=== PATIENT | female | born 1985 | race African-American/Black ===

== ENCOUNTER → 2023-05-25 09:47 | Outpatient (BNVA) | payer OTHER, SELFPAY | PROVIDERS: PCP Internal Medicine; Visit Provider Physician Assistant ==

== ENCOUNTER 2023-06-08 08:22 | Outpatient (AMB) | payer OTHER, SELFPAY ==
--- OUTSIDE RECORDS SUMMARY | 2023-06-08 08:23 | XMS_ITS | Continuity of Care Document ---
Author Name Unknown Organization [facility] Address [address] [place] [address]- Care Team Providers Care Assistant Account Executive Name Role Phone Yoli Sunshine MD, V Primary Care Physician [phone] Encounter [facility] ACCT R [id number] Date(s): 10/13/22 - 10/20/22 [facility] [address] [place] [address]- Encounter Diagnosis Severe obesity(Discharge Diagnosis) - 10/13/22 Health care maintenance(Discharge Diagnosis) - 10/13/22 Headache(Discharge Diagnosis) - 10/13/22 Loud snoring(Discharge Diagnosis) - 10/13/22 Attending Physician: Yoli Sunshine MD, V Allergies, Adverse Reactions, Alerts No Known Allergies Problem List Condition Confirmation Course Effective Dates Status Health St atus Informant Headache Confirmed Active Health care maintenance Confirmed Active Severe obesity Confirmed Active Loud snoring Confirmed Active Diagnosis Diagnosis Type Effective Dates Health Status Clinical Service Informant Severe obesity Discharge Diagnosis 10/13/22 Health care maintenance Discharge Diagnosis 10/13/22 Headache Discharge Diagnosis 10/13/22 Loud snoring Discharge Diagnosis 10/13/22 Vital Signs Most recent to oldest [Reference Range]: 1 2 Height 163 cm (10/13/22 11:29 AM) 163 cm (10/13/22 8:22 AM) Weight 118.7 kg (10/13/22 11:29 AM) 118.7 kg (10/13/22 8:22 AM) Oxygen Saturation [94-100 %] 98 % (10/13/22 8:22 AM) Pulse Rate [55-90 bpm] 70 bpm (10/13/22 8:22 AM) Body Mass Index [18.5-24.99 kg/m2] 44.68 kg/m2 *>HHI* (10/13/22 8:22 AM) Blood Pressure [90-138/55-84 mm Hg] 126/ 84mm Hg (10/13/22 8:22 AM) Respiratory Rate [16-30 br/min] 16 br/mi n (10/13/22 8:22 AM) Mode of Delivery (Oxygen) Room air (10/13/22 8:22 AM) Blood pressure sites Arm, left (10/13/22 8:22 AM) Weight Obtained Via Standing scale (10/13/22 8:22 AM) Social History Social History Type Response Smoking Status Never (less than 100 in lifetime) entered on: 10/13/22 Sex Note * Gilda Edwards: VERIFY, PERFORM, SIGN Event Display: Patient Education/Instruction Authored Date: [id number] [facility] *No Edge Adult Ped Clinical Summary Name ROBERT BETTENCOURT Age 37 Years 1985 PCP Jong TRIPATHI, Yoli Valverde PCP Visit Date 10/13/2022 08:00:00 Additional Instructions: Scheduled Appointments?? Future Appointments ?No Future Appointments Scheduled Follow-Up Instructions ?? Diagnosis Medications: Please continue your medications until treatment is completed or stopped by your provider. Discuss any questions related to medications with your provider. Allergy Info:?? NKA Medications Given This Visit Future Orders ?Comprehensive Metabolic Panel? Order Date:10/13/22?- Complete on or after?10/13/22 ?TSH with T4 Reflex (Adults Only)? Order Date:10/13/22?- Complete on or after?10/13/22 ?Lipid Panel? Order Date:10/13/22?- Complete on or after?10/13/22 ?CBC w/ Differential? Order Date:10/13/22?- Complete on or after?10/13/22 ?Hemoglobin A1C (Monitoring)? Order Date:10/13/22?- Complete on or after?10/13/22 ?Hepatitis C Ab? Order Date:10/13/22?- Complete on or after?10/13/22 Vital Signs Height 163 cm Weight 118.7 kg BMI 44.68 kg/m2 Blood Pressure 126 mm Hg/84 mm Hg Temperature Pulse Rate 70 bpm Respiratory Rate 16 br/min 02 Sat Mode of Delivery 98 %/Room air You can now view a summary of your hospital visit from the comfort of your home through a free online portal called [employer]. [employer] is a website that allows you to securely view your medical information including discharge summary, medications and follow-up visits. ??You can alsosend a secure electronic message to your doctor???s office to request appointments, renew medications or just ask a question. You can enroll at [email or web address] or register during your next office visit. Disclaimer:?? The information provided is of a general nature and is intended to be used in conjunction with the recommendations and advice of your health care practitioner. ??Every effort has been made to ensure that the information provided is accurate and complete at the time it is provided to you however, as your needs change, or, as new ??information becomes available, different or additional instructions may be required. If you have questions, please consult with your primary care provider or pharmacist, as appropriate. ??This information is not intended to serve as substitution for assessment and evaluation by a qualified health care provider. If you do not have a primary care provider, you may find a [facility] provider by calling [facility] [employer] Link at [phone]. For information about the plan of care including goals and instructions for your diagnosis, please see the patient education orders section of this document. Patient Education Materials?? The content of this educational material or handout may have been modified, supplemented, or adapted from its original content and format to support your individualized medical care. Patient Care team information Care Team Personnel Name: Jong TRIPATHI, Yoli Valverde Position: [facility] Primary Care Physician Member Role: PCP Address: Address: [address] [address]- Care Team Related Persons Name: ADEBAYO VASQUEZ Address: home [address] [place] [address]
--- OUTSIDE RECORDS SUMMARY | 2023-06-08 08:23 | XMS_ITS | Continuity of Care Document ---
Author Name Unknown Organization [facility] Address [address], [address] [place] [address]- Care Team Providers Care Windows Systems Admin Name Role Phone Yoli Sunshine MD, V Primary Care Physician [id number]s): [facility]/24/23 - 01/31/23 [facility] [address], [address] [place] [address]- Attending Physician: Deny Douglass MD Referring Physician: Yoli Sunshine MD, V Allergies, Adverse Reactions, Alerts No Known Allergies Medications ferrous sulfate 325 mg oral enteric coated tablet 325 mg, 1, tablet, By Mouth, Daily at bedtime, may take with food to minimize abdominal discomfort.take with orange juice., # 30 tablet, Refills 3, Tot. Refills 3, Maintenance, 10/30/22 13:13:00 EDT, Route to Pharmacy Electronically, [email or web address] #... Start Date: 10/30/22 Status: Ordered Problem List Condition Confirmation Course Effective Dates Status Health St atus Informant Headache Confirmed Active Health care maintenance Confirmed Active Severe obesity Confirmed Active Loud snoring Confirmed Active Vital Signs Most recent to oldest [Reference Range]: 1 Height 163 cm (01/24/23 10:15 AM) Weight 115.6 kg (01/24/23 10:15 AM) Pulse Rate [55-90 bpm] 83 bpm (01/24/23 10:15 AM) Body Mass Index [18.5-24.99 kg/m2] 43.51 kg/m2 *>HHI* (01/24/23 10:15 AM) Blood Pressure [90-138/55-84 mm Hg] 147/ 96mm Hg *H* (01/24/23 10:15 AM) Blood pressure sites Arm, right (01/24/23 10:15 AM) Dry Weight 115.6 kg (01/24/23 10:15 AM) Weight Obtained Via Standing scale (01/24/23 10:15 AM) Dry Weight Obtained Via Standing scale (01/24/23 10:15 AM) Social History Social History Type Response Smoking Status Never (less than 100 in lifetime) entered on: 10/13/22 Sex Patient Care team information Care Team Personnel Name: Yoli Sunshine MD, V Position: S Physician - Primary Care Member Role: PCP Address: Address: [address] [place] [address]- Care Team Related Persons Name: ADEBAYO VASQUEZ Address: home [address] [place] [address]
--- OUTSIDE RECORDS SUMMARY | 2023-06-08 08:23 | XMS_ITS | Continuity of Care Document ---
Author Name Unknown Organization [facility] Address [address] [place] [address]- Care Team Providers Care Power Generation Turbine Room Operator Name Role Phone Not on Staff, PCP Primary Care Physician Unavail able Encounter [facility] Date(s): 08/18/22 - 08/18/[address] [address]- Encounter Diagnosis Chest discomfort(Final) - 08/18/22 Discharge Disposition: A-D/C Home Attending Physician: John Saunders DO Admitting Physician: John Saunders DO Referring Physician: Not on Staff, Referring MD Allergies, Adverse Reactions, Alerts No Known Allergies Problem List Condition Confirmation Course Effective Dates Status Health St atus Informant Severe obesity Confirmed Active Results Radiology Reports * Exam Date Time Procedure Performing Provider Status 08/18/22 2:01 PM Chest 2 Views Frontal and Lat Herbie Stiles (Verified) Notes: (Chest 2 Views Frontal and Lat) Reason For Exam: Chest Pain;Other: RESULT: Chest 2 Views Frontal and Lat Chest 2 Views Frontal and Lat Reason: Chest pain COMPARISON: None. FINDINGS: LINES AND TUBES: None. LUNGS AND PLEURA: Low lung volumes with mild basilar atelectasis. Lungs are otherwise clear with no consolidation. No pleural effusion. No pneumothorax. HEART, MEDIASTINUM AND ANDREY: Mild prominence of the cardiac silhouette. Normal mediastinal and hilar contour. BONES AND SOFT TISSUES: No acute abnormality. IMPRESSION: Mild cardiomegaly. Otherwise no acute abnormality. I have personally reviewed the images and I agree with this report. WSN: [id number] Ordering Physician: Raad Keyes Dictated By: Lavonne Wyatt DO Dictated Date/Time: 08/18/22 2:18 pm Reviewed By: Chuck Hubbard MD, V Signed By: Chuck Hubbard MD, V Signed Date/Time: 08/18/22 2:23 pm Transcribed By: SHERRY Transcribed Date/Time: 08/18/22 2:06 pm Vital Signs Most recent to oldest [Reference Range]: 1 2 3 Height 163 cm (08/18/22 8:13 PM) 163 cm (08/18/22 1:26 PM) Weight 116.5 kg (08/18/22 8:13 PM) 116.5 kg (08/18/22 1:26 PM) Oxygen Saturation [94-100 %] 100 % (08/18/22 8:13 PM) 100 % (08/18/22 5:33 PM) 100 % (08/18/22 4:34 PM) Pulse Rate [55-90 bpm] 71 bpm (08/18/22 8:13 PM) 72 bpm (08/18/22 5:33 PM) 72 bpm (08/18/22 4:34 PM) Body Mass Index [18.5-24.99 kg/m2] 43.85 kg/m2 *>HHI* (08/18/22 8:13 PM) Blood Pressure [90-138/55-84 mm Hg] 133/72mm Hg (08/18/22 8:13 PM) 124/79mm Hg (08/18/22 5:33 PM) 138/84mm Hg (08/18/22 4:34 PM) Respiratory Rate [16-30 br/min] 16 br/min (08/18/22 8:13 PM) 16 br/min (08/18/22 4:34 PM) 16 br/min (08/18/22 2:25 PM) Temperature [96.8-100.4 DegF] 98.6 DegF (08/18/22 8:13 PM) 98.1 DegF (08/18/22 5:33 PM) 98.3 DegF (08/18/22 4:34 PM) Mode of Delivery (Oxygen) Room air (08/18/22 8:13 PM) Room air (08/18/22 5:33 PM) Room air (08/18/22 4:34 PM) Blood pressure sites Arm, left (08/18/22 8:13 PM) Arm, right (08/18/22 5:33 PM) Arm, left (08/18/22 4:34 PM) Temperature Route Oral (08/18/22 8:13 PM) Oral (08/18/22 5:33 PM) Oral (08/18/22 4:34 PM) Dry Weight 116.55 kg (08/18/22 8:13 PM) 116.55 kg (08/18/22 1:26 PM) EKG study * Event Display: ECG 12-Lead Authored Date: Please click on pdf link to open report * Event Display: ECG 12-Lead Authored Date: Ventricular Rate: 63 BPM Atrial Rate: 63 BPM P-R Interval: 156 ms QRS Duration: 88 ms Q-T Interval: 444 ms QTC Calculation(Bazett): 454 ms P [place]: 15 degrees R [place]: -2 degrees T [place]: 12 degrees Normal sinus rhythm Nonspecific T wave abnormality Abnormal ECG No previous ECGs available Confirmed by CARLOZ PORTER MD ([id number]) on 08/18/2022 6:34:36 PM [employer]: CARLOZ PORTER MD Note * [facility] , CIS S: TRANSCRIBE Lavonne Wyatt DO: SIGN Chuck Hubbard MD, V: VERIFY Event Display: Result: Authored Date: [id number] Chest 2 Views Frontal and Lat Reason: Chest pain COMPARISON: None. FINDINGS: LINES AND TUBES: None. LUNGS AND PLEURA: Low lung volumes with mild basilar atelectasis. Lungs are otherwise clear with no consolidation. No pleural effusion. No pneumothorax. HEART, MEDIASTINUM AND ANDREY: Mild prominence of the cardiac silhouette. Normal mediastinal and hilar contour. BONES AND SOFT TISSUES: No acute abnormality. IMPRESSION: Mild cardiomegaly. Otherwise no acute abnormality. I have personally reviewed the images and I agree with this report. WSN: [id number] Ordering Physician: Raad Keyes Dictated By: Lavonne Wyatt DO Dictated Date/Time: 08/18/22 2:18 pm Reviewed By: Chuck Hubbard MD, V Signed By: Chuck Hubbard MD, V Signed Date/Time: 08/18/22 2:23 pm Transcribed By: SHERRY Transcribed Date/Time: 08/18/22 2:06 pm Patient Care team information Care Team Personnel Name: Not on Staff, PCP Position: [facility] Physician (General Medicine) Member Role: PCP Name: John Saunders DO Position: [facility] Resident Member Role: Admitting Physician Address: Address: [address] [place] [address]- Name: Mark Caruso Position: [facility] ED TA [facility] Name: Yolanda ROWAN, Lennie Position: [facility] ED RN W/OE and Tasks Member Role: Patient Care Provider Name: Marjan Lozada MD Position: [facility] Resident Member Role: ED Resident Address: Address: [address] [place] [address]- Care Team Related Persons Name: ADEBAYO VASQUEZ Address: home [address] [place] [address]
--- OUTSIDE RECORDS SUMMARY | 2023-06-08 08:23 | XMS_ITS | Continuity of Care Document ---
Author Name Unknown Organization [facility] Address [address], [address] [place] [address]- Care Team Providers Care Materials Coordinator Name Role Phone Yoli Sunshine MD, V Primary Care Physician [phone] [id number] Date(s): 01/26/23 - 03/21/23 [facility] Barker[employer]il[employer] [employer] [address], [address] [place] [address]- Attending Physician: Samreen Pena MD Admitting Physician: Samreen Pena MD Referring Physician: Yoli Sunshine MD, V Allergies, Adverse Reactions, Alerts No Known Allergies Medications ferrous sulfate 325 mg oral enteric coated tablet 325 mg, 1, tablet, By Mouth, Daily at bedtime, may take with food to minimize abdominal discomfort.take with orange juice., # 30 tablet, Refills 3, Tot. Refills 3, Maintenance, 10/30/22 13:13:00 EDT, Route to Pharmacy [facility]ically, [facility]... Start Date: 10/30/22 Status: Ordered Problem List Condition Confirmation Course Effective Dates Status Health St atus Informant Headache Confirmed Active Health care maintenance Confirmed Active Severe obesity Confirmed Active Loud snoring Confirmed Active Social History Social History Type Response Smoking Status Never (less than 100 in lifetime) entered on: 10/13/22 Sex Patient Care team information Care Team Personnel Name: Yoli Sunshine MD, V Position: [facility] Physician - Primary Care Member Role: PCP Address: Address: [address] [place] [address]- Care Team Related Persons Name: NATHANKING PARKERSLEY Address: [address] [place] [address]
--- OUTSIDE RECORDS SUMMARY | 2023-06-08 08:23 | XMS_ITS | Continuity of Care Document ---
Author Name Unknown Organization [facility] Address [address], [address] [place] [address]- Care Team Providers Care Supervisor Lamp Shades Name Role Phone Yoli Sunshine MD, V Primary Care Physician [phone] [id number] Date(s): 01/24/23 - 02/23/23 [facility] BarkerNippos [facility] [address] [place] [address]- Attending Physician: Ritesh Curz Admitting Physician: Ritesh Cruz Referring Physician: Ritesh Cruz Allergies, Adverse Reactions, Alerts No Known Allergies [...] Primary Care Member Role: PCP Address: Address: [address] [place] [address]- Care Team Related Persons Name: NATHANKING PARKERSLEY Address: home [address] [place] [address]
--- OUTSIDE RECORDS SUMMARY | 2023-06-08 08:23 | XMS_ITS | Continuity of Care Document ---
Author Name Unknown Organization [facility] High[facility] [employer] [facility] Address [address], [address]t [place] [address]- Care Team Providers Care Party Director Name Role Phone Yoli Sunshine MD, V Primary Care Physician [facility] [id number] Date(s): 04/16/23 - 05/16/23 [facility] [address], [address] [place], [place] [address] Attending Physician: Ritesh Cruz Admitting Physician: AdmtrRitesh Referring Physician: Admtr, ArDionne Allergies, Adverse Reactions, Alerts No Known Allergies Medications ferrous sulfate 325 mg oral enteric coated tablet 325 mg, 1, tablet, By Mouth, Daily at bedtime, may take with food to minimize abdominal discomfort.take with orange juice., # 30 tablet, Refills 3, Tot. Refills 3, Maintenance, 10/30/22 13:13:00 EDT, Route to Pharmacy Electronically, [facility]/pharmacy #... Start Date: 10/30/22 Status: Ordered mirabegron 25 mg oral tablet, extended release 1 tablet = 25 mg, By Mouth, Daily, # 30 tablet, 11 Refills, Maintenance, 04/16/23 13:48:00 EDT, [facility]/pharmacy #[id number], Partial fill upon patient request if the prescription is for a schedule II opioid drug., 163, cm, 04/13/23 11:48:00 EDT, Height, 117.5,... Start Date: 04/16/23 Status: Ordered Problem List Condition Confirmation Course Effective Dates Status Health St atus Informant Health care maintenance Confirmed Active Severe obesity Confirmed Active Loud snoring Confirmed Active Social History Social History Type Response Smoking Status Never (less than 100 in lifetime) entered on: 10/13/22 Sex Patient Care team information Care Team Personnel Name: Yoli Sunshine MD, V Position: [facility] Physician - Primary Care Member Role: PCP Address: Address: [address] [place] [address]- [place] Care Team Related Persons Name: ADEBAYO VASQUEZ Address: [address] [place] [address]
--- OUTSIDE RECORDS SUMMARY | 2023-06-08 08:23 | XMS_ITS | Continuity of Care Document ---
Author Name Unknown Organization [facility] Address [address] [place] [address]- Care Team Providers Care Crepe Sole Wire Brusher Name Role Phone Yoli Sunshine MD, V Primary Care Physician [id number] Date(s): 10/30/22 - 11/29/22 [facility] [address] [place], [place] [address] Allergies, Adverse Reactions, Alerts No Known Allergies [...] Primary Care Member Role: PCP Address: Address: [address] [address]- Care Team Related Persons Name: ADEBAYO VASQUEZ Address: home [address] [place] [address]
--- OUTSIDE RECORDS SUMMARY | 2023-06-08 08:23 | XMS_ITS | Continuity of Care Document ---
Author Name Unknown Organization [facility] Address [address] [place] [address]- Care Team Providers Care Sap Bpc Architect Name Role Phone Yoli Sunshine MD, V Primary Care Physician [phone] Encounter [facility] Date(s): 04/13/23 - 05/13/23 [facility] [address] [place], [place] [address] Attending Physician: Ritesh Cruz Admitting Physician: AdmRitesh schroeder Referring Physician: AdmtrRitesh Allergies, Adverse Reactions, Alerts No Known Allergies Medications ferrous sulfate 325 mg oral enteric coated tablet 325 mg, 1, tablet, By Mouth, Daily at bedtime, may take with food to minimize abdominal discomfort.take with orange juice., # 30 tablet, Refills 3, Tot. Refills 3, Maintenance, 10/30/22 13:13:00 EDT, [facility] Start Date: 10/30/22 Status: Ordered mirabegron 25 mg oral tablet, extended release 1 tablet = 25 mg, By Mouth, Daily, # 30 tablet, 11 Refills, Maintenance, 04/16/23 13:48:00 EDT, [id number], Partial fill upon patient request if the [...] Primary Care Member Role: PCP Address: Address: [address] [place] [address]- Care Team Related Persons Name: ADEBAYO VASQUEZ Address: home [address] [place] [address]
--- OUTSIDE RECORDS SUMMARY | 2023-06-08 08:23 | XMS_ITS | Continuity of Care Document ---
Author Name Unknown Organization [facility] Address [address] [place] [address]- Care Team Providers Care Vat Tender Name Role Phone Yoli Sunshine MD, V Primary Care Physician Encounter [place] Date(s): 04/05/23 - 05/05/23 [facility] [address] [place] [address]- [place] Allergies, Adverse Reactions, Alerts No Known Allergies [...] 11 Refills, Maintenance, 04/16/23 13:48:00 EDT, [id number], Partial fill upon patient request if the [...] Personnel Name: Yoli Sunshine MD, V Position: [facility] Physician - Primary Care Member Role: PCP Address: Address: [address] [place], [place] [address] Care Team Related Persons Name: ADEBAYO VASQUEZ Address: home [address] [place] [address]
--- OUTSIDE RECORDS SUMMARY | 2023-06-08 08:23 | XMS_ITS | Continuity of Care Document ---
Author Name Unknown Organization [facility] Address [address] [place] [address]- Care Team Providers Care Salvage Inspector Name Role Phone Not on Staff, PCP Primary Care Physician Unavail able Encounter [facility] Date(s): 07/17/22 - 08/16/22 [facility] [address] [place] [address]- Patient Care team information Care Team Personnel Name: Not on Staff, PCP Position: [facility] Physician (General Medicine) Member Role: PCP Care Team Related Persons Name: ADEBAYO VASQUEZ
--- OUTSIDE RECORDS SUMMARY | 2023-06-08 08:23 | XMS_ITS | Continuity of Care Document ---
Author Name Unknown Organization [facility] Address [address] [place] [address]- Care Team Providers Care Paper Cap Machine Operator Name Role Phone Yoli Sunshine MD, V Primary Care Physician Encounter [facility] ACCT R [id number] Date(s): 10/16/22 - 11/15/22 [facility] [address] [place], [place] [address] Allergies, Adverse Reactions, Alerts No Known Allergies [...] Primary Care Member Role: PCP Address: Address: [address], [place] [address]- Care Team Related Persons Name: ADEBAYO VASQUEZ Address: [address] [place] [address]
--- NOTE | 2023-06-08 11:21 | A.OFFVIS_ITS ---
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 BMI 43.7 HPI Details Start time: 11.10am, End time: 11.55am ?I spent 40 minutes speaking with the patient on the phone plus an additional 5 minutes reviewing and updating records for a total of 45 minutes HPI Comments History of Present Illness Details Previous weight loss efforts: weight loss programs, exercise Wakes up: 7am, Sleeps: 8pm Breakfast: skips Lunch: 2pm (rice and yum potatoes) Dinner: 7pm (noodles) Snacks: 11am (cookies), 4pm (bread) Exercise: walking outside, has treadmill Fluids: Coffee: none, tea: 1/month, soda: Sprite, juice: 4/wk ([place] orange juice), ETOH: none PFSH Medical History (Updated 06/08/23 @ 11:23 by Cornelius Jolly MD) Morbid obesity Assessment & Plan Assessment & Plan (1) Morbid obesity: Code(s): E66.01 - Morbid (severe) obesity due to excess calories Plan: 1.? Plan for lap sleeve gastrectomy. If diaphragmatic or ventral hernias are present at time of surgery, these will be repaired laparoscopically as well. Risks and complications were discussed in detail including possible conversion to an open procedure, anastomotic leak, bleeding requiring transfusion, small bowel obstruction, , DVT and pulmonary embolism, cardiac, or pulmonary complications, as senior living complications such as anastomotic ulcer, ins ufficient weight loss and vitamin deficiencies. I emphasized the importance of close follow-up, adherence to instructions and good communication. 2. Nutritional counseling. Start with 2 Isopure INFUSIONS protein (buy at [employer], [employer], [employer], [facility]) shakes (HALF scoop in 8oz water) at 8am-10am and 11am-1pm, 1 protein bar (Zone Perfect protein bars, buy at [employer], ?[employer], [employer], or [employer]) at 2pm-4pm, dinner at 5pm (10 forks of protein and 10 forks of salad/vegetables) and one more protein bar after dinner at 6pm-8pm. So you do 2 protein shakes, 2 protein bars and one meal per day. Meal to include lean meat (beef, fish, pork, turkey, chicken), or equatorial guine[place] yogurt, or egg whites, or beans with a salad with olive oil and fruits (berries, pears, apples, kiwi). Avoid salt, breads, potatoes, rice, pasta, desserts. 3. Each shake would be drunk slowly, like coffee in a period of 2 hours. 4. Cut each bar in 4 pieces and eat each piece in 30min ?to make each bar last 2 hours. 5. I emphasized the importance of measuring accurately the food portion and measure it when serving the food in plate 6. The meal portions include 10 full-size forks of meat and 10 full-size forks of salad. You always eat the meat portion but you can replace up to 5 forks for salad/vegetables with rice, potatoes or pasta, or a fruit ?if you like. The less you do it the better weight loss will be. 7. One full-size fork is what it can be scooped on the fork without falling aside and not what can be bit with the fork. Use regular forks like those you find in a typical restaurant. 8.? Please send me weight measurements as soon as possible and then once a week. Always include your diet and exercise plan. 9. Start treadmill with an incline of 2.0 and speed of 3.0. Increase incline by 1 every 3 min to a max incline of 8.0, stay 3min at 8.0 and then return to 2.0 and repeat same steps until calorie goal is met. Goal is to burn 2000 calories per week on exercise, which means either 300 calories daily, or 400 calories 5 days per week, or 500 calories 4 days per week, or 650 calories 3 days per week. 10.?It is important of avoiding and for at least 18 months postoperatively and has been discussed at the infosession. 11. Goal is to lose at least 1.5-2lbs per week 12. Goal to lose 10% of your weight before surgery, which is about 25lbs. Ultimate weight goal: 230lbs before surgery 13. Please follow the diet plan exactly without any change. If you don't like something about the plan or you feel hungry you need to communicate with me so I can help you revise the plan. You should not change the plan yourself. Orders: Orders Insulin Today E66.01 - Morbid (severe) obesity due to excess calories H Pylori Breath Test Today E66.01 - Morbid (severe) obesity due to excess calories IRON PROFILE Today E66.01 - Morbid (severe) obesity due to excess calories Zinc Today E66.01 - Morbid (severe) obesity due to excess calories Vitamin B1 Today E66.01 - Morbid (severe) obesity due to excess calories Vitamin A Today E66.01 - Morbid (severe) obesity due to excess calories TSH reflex Free T4 Today E66.01 - Morbid (severe) obesity due to excess calories Vitamin D 25-OH Total Today E66.01 - Morbid (severe) obesity due to excess calories ECG 12 lead EKG Today E66.01 - Morbid (severe) obesity due to excess calories Hemoglobin A1c Today E66.01 - Morbid (severe) obesity due to excess calories Complete Blood Count Auto Diff Today E66.01 - Morbid (severe) obesity due to excess calories Lipid Panel Today E66.01 - Morbid (severe) obesity due to excess calories Comprehensive Met. Panel Today E66.01 - Morbid (severe) obesity due to excess calories Vitamin B12 and Folate Today E66.01 - Morbid (severe) obesity due to excess calories C Reactive Protein Today E66.01 - Morbid (severe) obesity due to excess calories Ferritin Today E66.01 - Morbid (severe) obesity due to excess calories US abdomen comp w elastography Today E66.01 - Morbid (severe) obesity due to excess calories XR chest 2V Today E66.01 - Morbid (severe) obesity due to excess calories FL upper GI w air Today E66.01 - Morbid (severe) obesity due to excess calories Referrals Behavioral Health Referral E66.01 - Morbid (severe) obesity due to excess calories Nutrition/Dietitian Referral E66.01 - Morbid (severe) obesity due to excess calories Telehealth Telehealth Location of provider rendering services: practice address Location of patient: address on file Patient Identification confirmed using: Name, : Yes Telehealth method: voice only Patient verbally consented to treatment: Yes Patient verbally consented to billing insurance company: Yes Patient informed of any privacy concerns related to visit: Yes Minutes spent on Phone/Video with Pt.: 45 Coding Level of Care Code Tele New Pt Level 4 (47763) Diagnoses Morbid obesity E66.01 Time Spent (min) 45
[2023-06-08 11:30] VITALS: BMI 43.6
== END 2023-06-08 11:56 | disposition home or self-care (01) ==
LOC: HO.HBS 08:22
PROVIDERS: PCP Internal Medicine; Visit Provider Surgery
DX: E66.01 Morbid (severe) obesity due to excess calories (principal)
CPT/HCPCS: 99204

== ENCOUNTER → 2023-06-08 08:22 | Outpatient (BNVA) | payer OTHER, SELFPAY | PROVIDERS: PCP Internal Medicine; Visit Provider Surgery ==

== ENCOUNTER 2023-06-14 11:55 | Outpatient (REF) | payer OTHER, SELFPAY ==
--- NOTE | ~2023-06-14 | XR_ITS ---
EXAMINATION: XR CHEST CLINICAL INFORMATION: Morbid obesity COMPARISON: None available. TECHNIQUE: 2 views of the chest were obtained. FINDINGS: No significant abnormality is noted involving the heart, lungs, mediastinum, bony thorax or soft tissues. XR/XR chest 2V IMPRESSION: Unremarkable examination.
[2023-06-14 12:09] LABS: MANUAL DIFF FLAG NO
--- NOTE | 2023-06-14 12:09 | ECG_ITS ---
Test Reason : E66.01 Blood Pressure : / mmHG Vent. Rate : 078 BPM Atrial Rate : 078 BPM P-R Int : 166 ms QRS Dur : 090 ms QT Int : 404 ms P-R-T Axes : 055 000 023 degrees QTc Int : 460 ms Normal sinus rhythm with sinus arrhythmia Normal ECG No previous ECGs available Referred By: Cornelius Jolly Electronically Signed By:TEMO BERNARDO MD
[2023-06-14 13:42] LABS: Basophils Absolute Auto 0.1 X10*3/uL (0.0-0.2); Eosinophils Absolute Auto 0.3 X10*3/uL (0.0-0.4); Eosinophils Percent Auto 5.2 % (0-4); Hematocrit 33.4 % (37.0-47.0); Hemoglobin 10.8 g/dl (12.0-16.0); Lymphocytes Absolute Auto 2.2 X10*3/uL (1.2-4.9); Lymphocytes Percent Auto 43.8 % (20-40); Mean Corpuscular HGB Conc 32.3 g/dl (31.0-35.0); Mean Corpuscular Hemoglobin 24.8 pg (27.0-33.0); Mean Corpuscular Volume 76.6 fL (80.0-98.0); Mean Platelet Volume 10.7 fL (9.4-12.3); Monocytes Absolute Auto 0.4 X10*3/uL (0.1-1.2); Monocytes Percent Auto 7.7 % (2-11); Neutrophils Absolute Auto 2.1 x10*3/uL (2.0-8.3); Neutrophils Percent Auto 42.3 % (45-73); Platelet Count 291 X10*3/uL (160-400); Red Blood Count 4.36 X10*6/uL (4.20-5.50)
[2023-06-14 13:49] LABS: Estimated Average Glucose 114 mg/dL; Hemoglobin A1c % 5.6 % (<6.0)
[2023-06-14 14:21] LABS: Alanine Aminotransferase 14 U/L (0-31); Albumin Level 4.4 g/dL (3.5-5.0); Alkaline Phosphatase 58 U/L (39-117); Anion Gap 16 (12-20); Aspartate Amino Transferase 19 U/L (5-31); Bilirubin Total 0.4 mg/dL (0.0-1.0); Blood Urea Nitrogen 8 mg/dL (9-16); C Reactive Protein 1.95 mg/dL (< or = 0.50); Calcium 9.9 mg/dL (8.4-10.2); Carbon Dioxide 23 mmol/L (22-29); Chloride 106 mmol/L (96-108); Cholesterol 156 mg/dL (<200); Estimated Glomerular Filt Rate > 60; Glucose Random 92 mg/dL (60-115); HDL Cholesterol 30 mg/dL (>40); Iron 32 mcg/dL (30-160); LDL Cholesterol Calculated 113 mg/dL (<100); Percent Iron Saturation 9 % (15-50); Potassium 3.8 mmol/L (3.3-5.1); Sodium 141 mmol/L (135-145); Total Iron Binding Capacity 363 mcg/dL (228-428); Total Protein 8.5 g/dL (6.5-8.0); Triglycerides 67 mg/dL (<150); Unsaturated Iron Binding 331 ug/dL
[2023-06-14 14:42] LABS: Ferritin 23 ng/mL (10-122); Insulin 13 uU/mL (2-29); TSH reflex Free T4 1.83 uIU/mL (0.32-4.0); Vitamin D 25-OH Total 11.7 ng/mL (>30)
[2023-06-14 14:46] LABS: Folate 11.8 ng/mL (> or = 4.0); Vitamin B12 1055 pg/mL (200-900)
[2023-06-18 15:08] LABS: Vitamin B1 <6 nmol/L (8-30)
[2023-06-20 03:33] LABS: Zinc 70 mcg/dL (60-130)
[2023-06-22 19:44] LABS: Vitamin A 29 mcg/dL (38-98)
== END 2023-06-14 11:56 | disposition home or self-care (01) ==
LOC: HO.LAB 11:55
PROVIDERS: PCP Internal Medicine; Visit Provider Surgery
DX: E66.01 Morbid (severe) obesity due to excess calories (principal)
CPT/HCPCS: 36415; 71046; 80053; 80061; 82306; 82607; 82728; 82746; 83036; 83525; 83540; 84425; 84443; 84590; 84630; 85025; 86140; 93005

== ENCOUNTER → 2023-06-14 12:09 | Outpatient (BNV) | payer OTHER, SELFPAY | PROVIDERS: PCP Internal Medicine; Visit Provider Internal Medicine Cardiovascular Disease | DX: I49.9 Cardiac arrhythmia, unspecified (principal) | CPT/HCPCS: 93010 ==

== ENCOUNTER 2023-06-27 10:16 | Outpatient (AMB) | payer OTHER, SELFPAY ==
--- NOTE | 2023-06-27 10:07 | MHC.AMNUTRGE ---
Intake Intake Visit Reasons: VIDEO Initial Nutrition SWL Allergies No Known Allergies Allergy (Verified 06/08/23 11:21) HPI Nutrition Presentation Reason for consult elevated BMI Diet Assmnt Details Pt is , from [place] , [place] . Has 6, 4, 2, years old lives with . States she normally eats a lot of high carb foods and is very sedentary. she is interested in learning more recipes and ways to modify recipes to fit her cultural food preferences and those of the family. She reports she is following the plan from the surgeon [facility] had bariatric surgery and is doing very well. Dietary counseling reduction Who buys your food self Who prepares/cooks your food self Meal frequency regular: lunch, dinner and snacks and never: breakfast Lifestyle Exercise No Food frequency Fruit: daily, Vegetables: daily, Grains/pasta/breads/cereal (carbs): daily, Meats/poultry/fish (protein): daily, Meat substitutes/nuts/seeds/legumes: daily, Desserts/sweets: daily, Water: daily, Soda: daily (1 can per day ) and Juice: daily Diagnosis Nutrition problem #1 overweight/obesity As related to (etiology) #1 excess energy intake and physical inactivity As evidenced by (sign/symptom) #1 high BMI Monitoring/Goals Nutrition problem monitoring total energy intake, level of knowledge/skill, total PRO intake and weight Outcome progress progressing Learning/Education Readiness to learn good Stages of change action Educational materials provided Yes Most Recent Diabetes Results: Cholesterol 156 mg/dL (<200) 06/14/23 HDL Cholesterol 30 mg/dL (>40) L 06/14/23 Triglycerides 67 mg/dL (<150) 06/14/23 Creatinine 0.80 mg/dL (0.5-1.4) 06/14/23 Blood Urea Nitrogen 8 mg/dL (9-16) L 06/14/23 Sodium 141 mmol/L (135-145) 06/14/23 Potassium 3.8 mmol/L (3.3-5.1) 06/14/23 Chloride 106 mmol/L (96-108) 06/14/23 Carbon Dioxide 23 mmol/L (22-29) 06/14/23 Calcium 9.9 mg/dL (8.4-10.2) 06/14/23 AST 19 U/L (5-31) 06/14/23 ALT 14 U/L (0-31) 06/14/23 Total Protein 8.5 g/dL (6.5-8.0) H 06/14/23 Albumin 4.4 g/dL (3.5-5.0) 06/14/23 [facility] Medical History (Updated 06/25/23 @ 11:48 by Cornelius Jolly MD) Morbid obesity Assessment & Plan Assessment & Plan (1) Morbid obesity: Code(s): E66.01 - Morbid (severe) obesity due to excess calories Plan nutrition follow up 07/27 at 10am Patient Instructions: provided some resources for modifying cuisine while respecting the original dishes . pt appears to be very committed to the program. will complete her classes and f/u in a month Telehealth Telehealth Location of provider rendering services: practice address Location of patient: address on file Patient Identification confirmed using: Name, : Yes Telehealth method: voice only Patient verbally consented to treatment: Yes Patient verbally consented to billing insurance company: Yes Patient informed of any privacy concerns related to visit: Yes Minutes spent on Phone/Video with Pt.: 30 Coding Level of Care Code Nutr Indiv Intake (64375) Diagnoses Morbid obesity E66.01 Time Spent (min) 30
== END 2023-06-27 10:29 | disposition home or self-care (01) ==
LOC: HO.HBS 10:16
PROVIDERS: PCP Internal Medicine; Visit Provider Dietitian, Registered
DX: E66.01 Morbid (severe) obesity due to excess calories (principal)

== ENCOUNTER → 2023-06-27 10:16 | Outpatient (BNVA) | payer OTHER, SELFPAY | PROVIDERS: PCP Internal Medicine; Visit Provider Dietitian, Registered | DX: E66.01 Morbid (severe) obesity due to excess calories (principal) | CPT/HCPCS: 97802 ==

== ENCOUNTER 2023-07-02 08:18 | Outpatient (AMB) | payer OTHER, SELFPAY ==
--- NOTE | 2023-07-02 11:13 | MHC.OFFVISWM ---
Intake VS Expanded 07/02/23 11:23 Height 5 ft 4 in Weight 244 lb 9 oz BMI 42.0 Body Fat % 35.6 Body Fat Mass 87.1 Fat Free Mass 157.8 Visceral Fat Rating 22.2 Body Water % 44.2 Body Water Mass 108.2 Basal Metabolic Rate/Score 1,916 Intake Visit Reasons: TV Follow Up SWL - 1ST Allergies No Known Allergies Allergy (Verified 06/08/23 11:21) HPI TV Follow Up SWL - 1ST HPI Details Start time: 10.58am, End time: 11.28am ?I spent 25 minutes speaking with the patient on the phone plus an additional 5 minutes reviewing and updating records for a total of 30 minutes HPI Comments History of Present Illness Details Overall weight loss: 9.5lbs Is doing 2 Isopure Infusions protein shakes (1/2 scoop in water), one Zone Perfect protein bars and one meal Exercise: is doing treadmill x3/week for 300 calories [facility] Medical History (Updated 07/02/23 @ 11:10 by Cornelius Jolly MD) Morbid obesity Assessment & Plan Assessment & Plan (1) Morbid obesity: Code(s): E66.01 - Morbid (severe) obesity due to excess calories Plan: 1. Continue same nutritional plan of 2 Isopure Infusions protein shakes (1/2 scoop in water), one Zone Perfect protein bars and one meal (10 forks of protein and 10 forks of salad or vegetables) 2. Please send me a picture of your meal daily after you measure it but before you consume it. 3. Exercise: continue treadmill for 300 calories but increase frequency to daily or 7 days per week. Goal is to burn 2000 calories per week on treadmill 4. Continue to send me weight measurements weekly on Mondays Medications: New docusate sodium (Colace) 100 mg PO DAILY 90 caps 0RF K59.00 - Constipation, unspecified Telehealth Telehealth Location of provider rendering services: practice address Location of patient: address on file Patient Identification confirmed using: Name, : Yes Telehealth method: voice only Patient verbally consented to treatment: Yes Patient verbally consented to billing insurance company: Yes Patient informed of any privacy concerns related to visit: Yes Minutes spent on Phone/Video with Pt.: 30 Coding Level of Care Code Tele Est Pt Level 4 (39522) Diagnoses Morbid obesity E66.01 Time Spent (min) 30
[2023-07-02 11:23] VITALS: BMI 42.0
== END 2023-07-02 11:29 | disposition home or self-care (01) ==
LOC: HO.HBS 08:18
PROVIDERS: PCP Internal Medicine; Visit Provider Surgery
DX: E66.01 Morbid (severe) obesity due to excess calories (principal)
CPT/HCPCS: 99214

== ENCOUNTER → 2023-07-02 08:18 | Outpatient (BNVA) | payer OTHER, SELFPAY | PROVIDERS: PCP Internal Medicine; Visit Provider Surgery ==

== ENCOUNTER 2023-07-06 09:04 | Outpatient (REF) | payer OTHER, SELFPAY ==
--- NOTE | ~2023-07-06 | FL_ITS ---
EXAMINATION: XR FLUOROSCOPY UPPER GI WITH AIR CLINICAL INFORMATION: Preop evaluation prior to bariatric surgery COMPARISON: None TECHNIQUE: Fluoroscopic air contrast upper GI examination was performed utilizing standard techniques with thin and thick barium and effervescent granules. Numerous spot images were obtained. FINDINGS: Lateral cine images of the oropharynx and hypopharynx demonstrate normal swallow mechanism with normal epiglottic inversion and soft palate elevation. No tracheal penetration, glottic or subglottic aspiration identified. No nasopharyngeal reflux present. Hypopharyngeal structures appear normal without evidence of mass or diverticulum. There was no significant cricopharyngeal achalasia. Dual and single contrast images of the esophagus demonstrate normal caliber, contour, and mucosal pattern. No evidence of stricture, mass, or ulcerations identified. Esophageal peristalsis was normal. A small type I hiatal hernia is present. Gastroesophageal reflux is seen up to the distal esophagus. Dual contrast and single contrast images of the stomach demonstrated normal contour and mucosal pattern without evidence of mass, ulceration, or other abnormality. Mild prominence of the areae gastricae is present but is felt to be within the realm of normal variation. Contrast freely passed into the gastric antrum and duodenal bulb without delay. Single and air-contrast images of the duodenal bulb demonstrate no abnormality. The duodenal sweep has a normal appearance, course, and mucosal fold appearance. The imaged proximal jejunum has a normal fold pattern and caliber. FLUOROSCOPY TIME: 2 minutes 56 seconds Number of Spot Images: 7 Number of Cine: 13 DOSE AREA PRODUCT: [id number] uGy-m2 (microgray-meter squared) FL/FL upper GI w air IMPRESSION: 1. Small type I hiatal hernia 2. Mild to moderate gastroesophageal reflux This procedure was performed by Raad Pritchett PA-C, and supervised by Dr. Trejo
== END 2023-07-06 09:05 | disposition home or self-care (01) ==
LOC: HO.XRAY 09:04
PROVIDERS: PCP Internal Medicine; Visit Provider Surgery
DX: E66.01 Morbid (severe) obesity due to excess calories (principal)
CPT/HCPCS: 74246

== ENCOUNTER → 2023-07-06 09:07 | Outpatient (BNV) | payer OTHER, SELFPAY | PROVIDERS: PCP Internal Medicine; Visit Provider Radiology Diagnostic Radiology | DX: Z01.818 Encounter for other preprocedural examination (principal); E66.01 Morbid (severe) obesity due to excess calories; K44.9 Diaphragmatic hernia without obstruction or gangrene; K21.9 Gastro-esophageal reflux disease without esophagitis | CPT/HCPCS: 74246 ==

== ENCOUNTER 2023-07-09 11:01 | Outpatient (AMB) | payer OTHER, SELFPAY ==
--- NOTE | 2023-07-09 10:36 | MHC.WMTHER ---
Intake Intake Visit Reasons: VIDEO Intake Allergies No Known Allergies Allergy (Verified 06/08/23 11:21) [facility] Medical History (Updated 07/09/23 @ 11:16 by Gilda Marr) Morbid obesity Behavioral Health Assessment Weight Management Therapy Therapy Notes Details Pt is looking to have weight loss surgery to help improve her health and quality of life. She denied any mental health history at all or problems with drugs or alcohol. Presenting Concerns Referral Source provider Reason for referral weight loss surgery evaluation Precipitating Event obesity Living Situation Current Living Situation Own At risk of losing current housing? No Satisfied with current living situation? Yes Comments Pt lives with her and her three kids ages 6, 4, and 2 years old. Food/Weight/Diet Expectations of change weight loss and maintenance History/Relationship with food She stated that her biggest struggle is sugar, sweets, cookies, soda. She grew up eating [place] food prior to moving here and would walk several miles a day. She also reported skipping meals and then eating large quantities. History/Relationship with weight Pt stated that she has been struggling with her weight for over ten years. Also reported that when she came here in 2004 she was thin. She started to gain weight in 2007 when she had access to any kind of food unlike her home country. History/Relationship with dieting several diets in the past, She would loose weight and then gain it back shortly after due to inconsistency. Binge Eating Do you frequently eat large amounts of food in short periods of time, not feeling physically hungry? No Do you feel out of control when you eat a large amount of food in a short period of time? No Do you eat large amounts of food rapidly and typically alone? No Night Eating Do you wake up at least once during the night to eat? No If you wake up in the night, do you find that it is necessary to eat something in order to fall back asleep? No Do you have little or no appetite in the morning and feel very hungry in the evening, often overeating between dinner and when you go to bed? No Social History Family history and relationship Pt was born and raised in [facility]. She moved here in 2004. Pt is and has three young children. Pt is one of 4 siblings and her 3 brothers live in the [facility]. Pt father has and her mother lives close by. 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 Developmental history and status none Social support , mom Pentecostalism/Spirituality Gnosticism Cultural/Ethnic information [place] Legal Involvement and History Current or historical involvement with the legal system? none known Education Highest grade completed currently in college for social work Preferred learning style Auditory, Verbal, Written, Learn by doing and Visual Currently enrolled in educational program? No Interested in further educational program? No Educational Interests/Skills Pt is currently in school and raising three children. 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 No Meaningful activities patient walks in the treadmill everyday, dancing, singing, photography Financial Situation Describe current financial situation Comfortable Financial assistance? None Service Service? No Mental Health and Addiction Treatment Current/Past substance abuse? Yes Current/Past addictive behavior concerns? Yes Medications Is the patient compliant with medications? Yes Does the patient have Renee Guardian in place? Not applicable Does the patient use complimentary health approaches? Yes Trauma/Abuse History History of trauma? No Questionnaires PHQ-9 Over the last 2 weeks, how often have you been bothered by any of the following problems? 1. Little interest or pleasure in doing things: nearly every day 2. Feeling down, depressed, or hopeless: nearly every day 3. Trouble falling or staying asleep, or sleeping too much: nearly every day 4. Feeling tired or having little energy: nearly every day 5. Poor appetite or overeating: nearly every day 6. Feeling bad about yourself - or that you are a failure or have let yourself or your family down: more than half the days 7. Trouble concentrating on things, such as reading the newspaper or watching television: not at all 8. Moving or speaking so slowly that other people could have noticed. Or the opposite - being so fidgety or restless that you have been moving around a lot more than usual: not at all 9. Thoughts that you would be better off or of hurting yourself in some way: not at all Total score: 17 Source: Developed by Drs. Jonny Cortés, Emili Gaona, Justin Lovelace and colleagues, with an educational sb from [employer]. Binge Eating Scale Group 1 A. I don't feel self-conscious about my wt. or body size when I'm with others. B. I feel concerned about how I look to others, but it normally does not make me fell disappointed with myself C. I do get self-conscious about my appearance and wt. which makes me feel disappointed in myself. D. I feel very self-conscious about my wt. and frequently I feel intense shame and disgust for myself. I try to avoid social contacts because of my self-consciousness. Response Group 1: C Group 2 A. I don't have any difficulty eating slowly in the proper manner. B. Although I seem to gobble down foods, I don't end up feeling stuffed because of eating to much. C. At times, I tend to eat quickly and then, I feel uncomfortably full afterwards. D. I have the habit of bolting down my food, without really chewing it. When this happens I usually feel uncomfortably stuffed because I've eaten to much. Response Group 2: B Group 3 A. I feel capable to control my eating urges when I want to. B. I feel like I have failed to control my eating more than the average person. C. I feel utterly helpless when it comes to feeling in control of my eating urges. D. Because I feel so helpless about controlling my eating I have become very desperate about trying to get control. Response Group 3: C Group 4 A. I don't have the habit of eating when I'm bored. B. I sometimes eat when I'm bored, but often I'm able to get busy and get my mind off food. C. I have a regular habit of eating when I'm bored, but occasionally, I can use some other activity to get my mind off eating. D. I have a strong habit of eating when I'm bored. Nothing seems to help me breath the habit. Response Group 4: D Group 5 A. I'm usually physically hungry when I eat something. B. Occasionally, I eat something on impulse even though I really am not hungry. C. I have the regular habit of eating foods, that I might not really enjoy, to satisfy a hungry feeling even though physically, I don't need the food. D. Although I'm not physically hungry, I get a hungry feeling in my mouth that only seems to be satisfied when I eat a food, like sandwich, that fills my mouth. Sometimes, when I eat the food to satisfy my mouth hunger, I then spit the food out so I won't gain weight. Response Group 5: B Group 6 A. I don't feel any guilt or self-hate after I overeat. B. After I overeat, occasionally I feel guilt or self-hate. C. Almost all the time I experience strong guilt or self-hate after I overeat. Response Group 6: B Group 7 A. I don't lose total control of my eating when dieting even after periods when I overeat. B. Sometimes when I eat a forbidden food on a diet, I feel like I blew it and eat even more. C. Frequently, I have the habit of saying to myself, I've blown it now, why not go all the way, when I overeat on a diet. When that happens I eat more. D. I have a regular habit of starting a strict diets for myself but I break the diets by going on an eating binge. My life seems to be either a feast or famine. Response Group 7: B Group 8 A. I rarely eat so much food that I feel uncomfortably stuffed afterwards. B. Usually about once a month, I each such a quantity of food, I end up feeling very stuffed. C. I have regular periods during the month when I eat large amounts of food, either at mealtime or at snacks. D. I eat so much food that I regularly feel quite uncomfortable after eating and sometimes a bit nauseous. Response Group 8: C Group 9 A. My level of calorie intake does not go up very high or go down very low on a regular basis. B. Sometimes after I overeat, I will try to reduce my caloric intake to almost nothing to compensate for the excess calories I've eaten. C. I have a regular habit of overeating during the night. It seems that my routine is not to be hungry in the morning but overeat in the evening. D. In my adult years, I have had week-long periods where I practically starve myself. This follows periods when I overeat. It seems I live a life of either feast or famine. Response Group 9: C Group 10 A. I usually am able to stop eating when I want to. I know when enough is enough. B. Every so often, I experience a compulsion to eat which I can't seem to control. C. Frequently, I experience strong urges to eat which I seem unable to control, but at other times I can control my eating urges. D. I feel incapable of controlling urges to eat. I have a fear of not being able to stop eating voluntarily. Response Group 10: C Group 11 A. I don't have any problem stopping eating when I feel full. B. I usually can stop eating when I feel full but occasionally overeat leaving me feeling uncomfortably stuffed. C. I have a problem stopping eating once I start and usually I feel uncomfortably stuffed after I eat a meal. D. Because I have a problem not being able to stop eating when I want, I sometimes have to induce vomiting to relieve my stuffed feeling. Response Group 11: C Group 12 A. I seem to eat just as much when I'm with others, Family social gatherings as when I'm by myself. B. Sometimes, when I'm with other persons, I don't eat as much as I want to eat because I'm self-conscious about my eating. C. Frequently, I eat only a small amount of food when others are present, because I'm very embarrassed about my eating. D. I feel so ashamed about overeating that I pick times to overeat when I know no one will see me. I feel like a closet eater. Response Group 12: C Group 13 A. I eat three meals a day with only an occasional between meal snack. B. I eat 3 meals a day, but I also normally snack between meals. C. When I am snacking heavily, I get in the habit of skipping regular meals. D. There are regular periods when I seem to be continually eating, with no planned meals. Response Group 13: C Group 14 A. I don't think much about trying to control unwanted eating urges. B. At least some of the time, I feel my thoughts are pre-occupied with trying to control my eating urges. C. I feel that frequently I spend much time thinking about how much I ate or about trying not to eat anymore. D. It seems to me that most of my waking hours are pre-occupied by thoughts about eating or not eating. I feel like I'm constantly struggling not to eat. Response Group 14: B Group 15 A. I don't think about food a great deal. B. I have strong craving for food but they last only for brief periods of time. C. I have days when I can't seem to think about anything else but food. D. Most of my days seem to be pre-occupied with thoughts about food. I feel like I live to eat. Response Group 15: C Group 16 A. I usually know whether or not I'm physically hungry. I take the right portion of food to satisfy me. B. Occasionally, I feel uncertain about knowing whether or not I'm physically hungry. A these times it's hard to know how much food I should take to satisfy me. C. Even though I might know how many calories I should eat, I don't have any idea what is a normal amount of food for me. 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 She reported not needing any additional help at this time. After reviewing results of questionnaires, this information writer would like to see her again. Telehealth Telehealth Location of provider rendering services: practice address Location of patient: address on file Patient Identification confirmed using: Name, : Yes Telehealth method: video Patient verbally consented to treatment: Yes Patient verbally consented to billing insurance company: Yes Patient informed of any privacy concerns related to visit: Yes Minutes spent on Phone/Video with Pt.: 45 Coding Level of Care Code Tele Psy Diag Eval (01674) Diagnoses Unspecified nonpsychotic mental disorder F48.9 Time Spent (min) 45
== END 2023-07-09 16:49 | disposition home or self-care (01) ==
LOC: HO.HBST 11:01
PROVIDERS: PCP Internal Medicine; Visit Provider Counselor Mental Health
DX: F48.9 Nonpsychotic mental disorder, unspecified (principal)
CPT/HCPCS: 90791

== ENCOUNTER → 2023-07-09 11:01 | Outpatient (BNVA) | payer OTHER, SELFPAY | PROVIDERS: PCP Internal Medicine; Visit Provider Counselor Mental Health ==

== ENCOUNTER 2023-07-18 09:02 | Outpatient (REF) | payer OTHER, SELFPAY ==
--- NOTE | ~2023-07-18 | US_ITS ---
EXAMINATION: US COMPLETE ABDOMEN WITH LIVER ELASTOGRAPHY CLINICAL INFORMATION: Obesity. COMPARISON: None available. TECHNIQUE: Real-time imaging of the abdominal viscera. Noninvasive ultrasound liver fibrosis assessment is performed using Lorena ElastPQ point quantification shear wave elastography (2D-SWE) with a C5-2 MHz transducer. Multiple elastography samples are obtained. FINDINGS: PANCREAS: Normal. The visualized pancreatic head and body are normal in appearance. The remainder of the pancreas is obscured from visualization by the overlying bowel gas. ABDOMINAL AORTA: The proximal, middle, and distal aortic segments are normal in caliber. INFERIOR VENA CAVA: Visualized portions are normal. LIVER: Normal. The liver demonstrates normal size, contour and echogenicity. No focal lesion or intrahepatic biliary duct dilatation. The right lobe measures 12.8 cm in length. The left lobe measures 11.6 cm in length. Portal flow is towards the liver (hepatopetal). Shear wave liver elastography median stiffness is 1.19 m/s (reference: normal median stiffness is 1.3 m/s or less). IQR/median stiffness to assess sampling precision is 0.08 (reference: good quality data set is IQR/median stiffness of 0.15 or less). GALLBLADDER: There is cholelithiasis. The gallbladder is physiologically distended without evidence of sludge, polyps, wall thickening or pericholecystic fluid. COMMON BILE DUCT: Normal in caliber measuring 0.2 cm in diameter. RIGHT KIDNEY: Normal. No hydronephrosis. No renal calculi or focal parenchymal lesions. The kidney measures 11.1 cm in maximum dimension. LEFT KIDNEY: Normal. No hydronephrosis. No renal calculi or focal parenchymal lesions. The kidney measures 11.5 cm in maximum dimension. SPLEEN: Normal. The spleen measures 12.0 cm in maximum dimension. FREE FLUID: None. US/US abdomen comp w elastography IMPRESSION: 1. There is cholelithiasis. 2. Liver elastography: Measurements are consistent with a high probability of normal liver stiffness. REFERENCE: Society of Radiologists in Ultrasound Liver Stiffness Thresholds (2020): LIVER STIFFNESS THRESHOLDS: *Liver Stiffness equal or less than 1.3 m/s: High probability of being normal. *Liver Stiffness less than 1.7 m/s: In the absence of other known clinical signs, rules out compensated advanced chronic liver disease. *Liver Stiffness 1.7-2.1 m/s: Suggestive of compensated advanced chronic liver disease but need further test for confirmation. *Liver Stiffness over 2.1 m/s: Rules in compensated advanced chronic liver disease. *Liver Stiffness over 2.4 m/s: Suggestive of clinically significant portal hypertension. QUALITY OF DATA SET: *IQR/Median value equal or less than 0.15 implies a quality data set. *IQR/Median value over 0.15 implies a poor quality data set. SIGNIFICANT CHANGE FROM PRIOR EXAM: Significant change if liver stiffness measurement is 10% or greater from prior exam. OTHER CONSIDERATIONS: The stage of liver fibrosis may be overestimated in the setting of acute hepatitis, liver inflammation, elevated liver function tests, hepatic vascular congestion, obstructive cholestasis, non-fasting state, and infiltrative diseases such as amyloidosis and lymphoma. In some patients with NAFLD, the liver stiffness thresholds for compensated advanced chronic liver disease may be lower. In causes other than viral hepatitis and NAFLD, liver stiffness thresholds are not well established.
== END 2023-07-18 09:03 | disposition home or self-care (01) ==
LOC: HO.US 09:02
PROVIDERS: PCP Internal Medicine; Visit Provider Surgery
DX: E66.01 Morbid (severe) obesity due to excess calories (principal)
CPT/HCPCS: 76700; 76981

== ENCOUNTER 2023-07-18 10:27 | Day surgery (SDC) | payer OTHER, SELFPAY ==
[2023-07-16 12:37] VITALS: BMI 41.9
--- NOTE | 2023-07-17 08:39 | HO.ANESPROP2 ---
Documented by User: Jessy Baires NP 07/17/23 08:40 HPI - Anesthesia Eval Consult details Narrative: 38yo F for Upper Endoscopy PMFSH Active Problems Active Problems: All Active Problems (Updated 07/09/23 @ 11:16 by Gilda Marr) Unspecified nonpsychotic mental disorder (Acute) Constipation (Acute) Vitamin B1 deficiency (Acute) Vitamin A deficiency (Acute) Vitamin D deficiency (Acute) Anemia (Acute) Morbid obesity (Acute) Past Medical History Medical History Morbid obesity Social History Social History Patient Tobacco Use Status: Never used Tobacco Use of substances other than those prescribed or required for medical reasons: No Are you DNR?: No Advance Directives: No Advance Directives Information Provided: Yes Meds Allergies Allergy/AdvReac Type Severity Reaction Status Date / Time No Known Allergies Allergy Verified 07/18/23 13:22 Home Medications Medication Instructions Recorded Confirmed Last Taken Type ferrous sulfate 325 mg (65 mg 325 mg PO BEDTIME 05/25/23 07/18/23 Unknown History iron) tablet,delayed release Vyvanse 30 mg PO DAILY 07/18/23 07/18/23 Unknown History bupropion HCl 300 mg PO DAILY 07/18/23 07/18/23 Unknown History Exam Height,Weight and Vital Signs: Height 5 ft 4 in Weight 110.677 kg Pertinent Lab Results Pertinent Lab Results: Laboratory Tests 06/14/23 12:07 WBC 5.0 Hgb 10.8 L Hct 33.4 L Plt Count 291 Sodium 141 Potassium 3.8 Chloride 106 Carbon Dioxide 23 BUN 8 L Creatinine 0.80 Assessment and Plan Assessment Anesthesia Assessment: Chart Reviewed Documented by User: Werner Murillo MD 07/18/23 13:25 PMFSH Past Medical History Medical History Morbid obesity Family History Family history of problems with anesthesia: No Social History Social History Patient Tobacco Use Status: Never used Tobacco Use of substances other than those prescribed or required for medical reasons: No Are you DNR?: No Advance Directives: No Advance Directives Information Provided: Yes Meds Allergies Allergy/AdvReac Type Severity Reaction Status Date / Time No Known Allergies Allergy Verified 07/18/23 13:22 Home Medications Medication Instructions Recorded Confirmed Last Taken Type ferrous sulfate 325 mg (65 mg 325 mg PO BEDTIME 05/25/23 07/18/23 Unknown History iron) tablet,delayed release Vyvanse 30 mg PO DAILY 07/18/23 07/18/23 Unknown History bupropion HCl 300 mg PO DAILY 07/18/23 07/18/23 Unknown History Exam Airway Mallampati Class: III TM Dist: >3cm Neck ROM: Full Loose/Missing/Broken Teeth: No Heart: [id number] Lungs: cta b/l Assessment and Plan Assessment Anesthesia Assessment: Anesthesia Plan Discussed Final Anesthetic Review Family History of Problems with Anesthesia: No NPO: Yes ASA Class: II Final Preanesthetic Review: No Changes in Pt Med Stat, Meds/Allgs Chart Reviewed, Consent Obtained/Reviewed and Anes Risks/Benef Reviewed Patient Risk: Intermediate Procedure Risk: Intermediate Assessment/Block/Sedation in SS: Assess/Block/Sedation-SS Anesthetic Plan Anesthetic Plan: MAC: Disposition: Standard PACU
[2023-07-18 11:40] VITALS: BMI 41.7
[2023-07-18 11:57] LABS: UPreg QC Valid YES; Urine Pregnancy NEGATIVE (NEGATIVE)
[2023-07-18 12:02] VITALS: BP 145/89; PULSE 78; RESP 16; TEMP 36.5; O2SAT 100
--- NOTE | 2023-07-18 12:58 | P.HPSUR_ITS ---
Pre-Procedural Eval Section A Date of Service: 07/18/23 The patient is an INPATIENT: No The History & Physical has been completed within 30 days and I have reviewed it.: Yes Section B Chief Complaint: Morbid (severe) obesity due to excess calories Details of Present Illness: Anemia Relevant Family History (Specify if Yes): No Relevant Social History: None Present Medications: None Medical History: No relevant PMH History of Previous Operations: No relevant previous surgery Allergies: Allergies Allergy/AdvReac Type Severity Reaction Status Date / Time No Known Allergies Allergy Verified 07/18/23 11:49 Review of Systems Sugical H&P ROS: Negative: Constitution, Cardiovascular, Respiratory, Neurological, Psychiatric, Hem-Onc, Allergic/Immunologic, Gastrointestinal, Genitourinary, Musculoskeletal, Integumentary, Endocrine and Eyes/Ears/Nose/Throat Exam Surgical H&P Exam: Normal: HEENT, Normal: Heart, Normal: Lungs, Normal: Extrem ities, Normal: Abdomen, Normal: Skin and Normal: Neurological Plan Diagnosis/Plan: Unchanged (EGD to assess source of anemia. Risks of bleeding and perforation were discussed.) I have reviewed the history and physical and performed a pertinent physical examination on my patient. No changes have occurred unless specified. Time Spent With Patient Time: Total time managing care of this patient today ____ minutes.
--- NOTE | 2023-07-18 12:59 | PM.OP ---
Brief Operative Note Date of Service: 07/18/23 Pre-op diagnosis: Anemia Post-op diagnosis: same (Esophagitis I) Procedure: PROCEDURE DATE: 07/18/2023 PREOPERATIVE DIAGNOSIS: Anemia POSTOPERATIVE DIAGNOSIS: ?Same as above. 1) Esophagitis I PROCEDURE: [id number] with biopsies Surgeon: ?Chandan Jolly M.D.. Ph.D. Cdl Flatbed Truck Driver: None ? Anesthesia: IV sedation Estimated blood loss: ?Minimal FINDINGS AND PROCEDURE: ? OPERATIVE INDICATIONS: ?The patient is a 38 year old female known to me who is interested in bariatric surgery. The patient has anemia. Based on this information I recommended an upper endoscopy to evaluate the patient's symptoms. Risks and complications of the surgery were discussed with the patient in advance particularly the possibility of perforation or bleeding that may require surgical intervention. The patient understood the risks and was in agreement with the plan. ? PROCEDURE: After informed consent was obtained by the patient, the patient was ?transferred to the Operating Room and was placed in the supine position.? After successful induction of IV sedation, a mouth block was inserted and the patient was placed in the left lateral decubitus position. An upper endoscopy was performed next, the oropharynx and esophagus appeared within the normal limits. There was a small hiatal hernia. The z-line was irregular with tongus of gastric mucosa protruding into the esophagus in less than 25% circumference. One biopsy was obtained from the distal esophagus 2-3 cm proximal to the GE junction and two additional biopsies from the GE junction. The stomach was entered and it appeared to be of normal size. There was no gastritis. There was no stricture or ulcer. A biopsy was obtained from the distal antrum and gastric fundus. No significant bleeding was noted from any of the biopsy sites. The scope was then advanced into the duodenum which appeared to be normal as well. At that point the duodenum ?and the stomach were decompressed and the scope was withdrawn from the patient's mouth. The patient extubated and was transferred in stable condition to the Recovery Room for further care. I was present and performed all steps of the procedure. There were no residents to assist with this case. Chandan Jolly M.D., Ph.D. Surgeon: Cornelius Jolly MD Anesthesia: MAC Was an Cdl Flatbed Truck Driver used for this Procedure?: No Estimated blood loss (mL): 0 IV fluids (mL): 400 Urine output (mL): 0 (No [employer] to record output) Pathology: other (1) antrum x1, 2) fundus x1, 3) GE junction x2, 4) distal esophagus x1) Condition: stable Disposition: PACU
--- NOTE | 2023-07-18 13:29 | HO.ANESPROP2 ---
[facility] Active Problems Active Problems: All Active Problems (Updated 07/09/23 @ 11:16 by Gilda Marr) Unspecified nonpsychotic mental disorder (Acute) Constipation (Acute) Vitamin B1 deficiency (Acute) Vitamin A deficiency (Acute) Vitamin D deficiency (Acute) Anemia (Acute) Morbid obesity (Acute) Past Medical History Medical History Morbid obesity Family History Family history of problems with anesthesia: No Surgical History History of Problems with Anesthesia: No Social History Social History Patient Tobacco Use Status: Never used Tobacco Use of substances other than those prescribed or required for medical reasons: No Are you DNR?: No Advance Directives: No Advance Directives Information Provided: Yes Meds Allergies Allergy/AdvReac Type Severity Reaction Status Date / Time No Known Allergies Allergy Verified 07/18/23 13:22 Active Medications: Current Medications Acetaminophen (Acetaminophen 325 Mg Tablet) 650 mg PO ONCE PRN PRN Reason: Pain, Mild (Pain Scale 1-3) Lactated Ringer's (Lr) 1,000 mls @ 80 mls/hr IVCONT .[id number] [facility] Lactated Ringer's (Lr) 1,000 mls @ 100 mls/hr IVCONT .[id number] [facility] Home Medications Medication Instructions Recorded Confirmed Last Taken Type ferrous sulfate 325 mg (65 mg 325 mg PO BEDTIME 05/25/23 07/18/23 Unknown History iron) tablet,delayed release Exam Height,Weight and Vital Signs: Height 5 ft 4 in Weight 110.223 kg Last Vital Signs Temp 97.7 F 07/18/23 12:02 Pulse 78 07/18/23 12:02 Resp 16 07/18/23 12:02 BP 145/89 H 07/18/23 12:02 Pulse Ox 100 07/18/23 12:02 O2 Del Method Room Air 07/18/23 12:02 Pertinent Lab Results Pertinent Lab Results: Laboratory Tests 07/18/23 11:38 Urine Test NEGATIVE Airway Mallampati Class: II TM Dist: >3cm Neck ROM: Full Assessment and Plan Assessment Anesthesia Assessment: Anesthesia Plan Discussed and Chart Reviewed Final Anesthetic Review Family History of Problems with Anesthesia: No History of Problems with Anesthesia: No NPO: Yes ASA Class: III Final Preanesthetic Review: No Changes in Pt Med Stat, Meds/Allgs Chart Reviewed, Consent Obtained/Reviewed and Anes Risks/Benef Reviewed Patient Risk: Intermediate Procedure Risk: Low Anesthetic Plan Anesthetic Plan: TIVA Disposition: Standard PACU
[2023-07-18 13:53] VITALS: BP 118/59; PULSE 83; RESP 16; TEMP 36.7; O2SAT 93
[2023-07-18 14:08] VITALS: BP 132/79; PULSE 71; RESP 16; O2SAT 97
[2023-07-18 14:20] VITALS: BP 156/84; PULSE 77; RESP 16; TEMP 36.2; O2SAT 98
== END 2023-07-18 15:00 | disposition home or self-care (01) ==
PROVIDERS: Nurse Practitioner; PCP Internal Medicine; Visit Provider Surgery
PROC: 0DJ08ZZ Inspection of Upper Intestinal Tract, Via Natural or Artificial Opening Endoscopic (ICD-10-PCS; CPT 43235; principal; 2023-07-18 12:50)
DX: D64.9 Anemia, unspecified (principal); K20.90 Esophagitis, unspecified without bleeding; E66.01 Morbid (severe) obesity due to excess calories; Z68.41 Body mass index [BMI] 40.0-44.9, adult; K44.9 Diaphragmatic hernia without obstruction or gangrene; K29.50 Unspecified chronic gastritis without bleeding; B96.81 Helicobacter pylori [H. pylori] as the cause of diseases classified elsewhere; K59.00 Constipation, unspecified
CPT/HCPCS: 43239; 81025; 88305; 88313; 88342; J2250; J2704

== ENCOUNTER → 2023-07-18 10:27 | Outpatient (BNV) | payer OTHER, SELFPAY | PROVIDERS: PCP Internal Medicine; Visit Provider Surgery | DX: D64.9 Anemia, unspecified (principal); K20.90 Esophagitis, unspecified without bleeding | CPT/HCPCS: 43239 ==

== ENCOUNTER 2023-07-23 08:03 | Outpatient (AMB) | payer OTHER, SELFPAY ==
--- NOTE | 2023-07-23 09:54 | MHC.OFFVISWM ---
Intake VS Expanded 07/23/23 10:25 Height 5 ft 4 in Weight 238 lb 5 oz BMI 40.9 Body Fat % 34.6 Body Fat Mass 82.5 Fat Free Mass 156.1 Visceral Fat Rating 21.2 Body Water % 44.9 Body Water Mass 107 Basal Metabolic Rate/Score 1,899 Intake Visit Reasons: TV Follow Up SWL Allergies No Known Allergies Allergy (Verified 07/18/23 13:22) HPI TV Follow Up SWL HPI Details Start time: 9.57am, End time: 10.33am ?I spent 31 minutes speaking with the patient on the phone plus an additional 5 minutes reviewing and updating records for a total of 36 minutes HPI Comments History of Present Illness Details Overall weight loss: 15.9lbs, or 6.25% TBWL Is doing 1 Isopure Infusion protein shake (1/2 scoop in water), one Zone Perfect protein bar and one meal (not measured) Exercise: is doing treadmill for 300 calories daily PFSH Medical History Morbid obesity Social History Patient Tobacco Use Status: Never used Tobacco Assessment & Plan Assessment & Plan (1) Morbid obesity: Code(s): E66.01 - Morbid (severe) obesity due to excess calories Plan: 1. Change nutritional plan to 2 Isopure INFUSIONS protein (buy at [employer], [employer], [employer], [employer]) shakes (HALF scoop in 8oz water) at 8am-10am and 11am-1pm, 1 protein bar (Zone Perfect protein bars, buy at [employer], ?[employer], [employer], or [employer]) at 2pm-4pm, dinner at 5pm (10 forks of protein and 10 forks of salad/vegetables) and one more protein bar after dinner at 6pm-8pm. So you do 2 protein shakes, 2 protein bars and one meal per day. Meal to include lean meat (beef, fish, pork, turkey, chicken), or mauritian yogurt, or egg whites, or beans with a salad with olive oil and fruits (berries, pears, apples, kiwi). Avoid salt, breads, potatoes, rice, pasta, desserts. 2. H pylori was positive and treatment was provided. You will need a follow-up test 2 weeks after completion of the treatment. 3. Each shake would be drunk slowly, like coffee in a period of 2 hours. 4. Cut each bar in 4 pieces and eat each piece in 30min ?to make each bar last 2 hours. 5. I emphasized the importance of measuring accurately the food portion and measure it when serving the food in plate 6. The meal portions include 10 full-size forks of meat and 10 full-size forks of salad. You always eat the meat portion but you can replace up to 5 forks for salad/vegetables with rice, potatoes or pasta, or a fruit ?if you like. The less you do it the better weight loss will be. 7. One full-size fork is what it can be scooped on the fork without falling aside and not what can be bit with the fork. Use regular forks like those you find in a typical restaurant. 8.? Please send me weight measurements weekly on Mondays Medications: New clarithromycin 500 mg PO Q12H 28 tabs 0RF A04.8 - Other specified bacterial intestinal infections omeprazole 40 mg PO DAILY 14 caps 0RF A04.8 - Other specified bacterial intestinal infections amoxicillin 500 mg PO Q8H 42 caps 0RF A04.8 - Other specified bacterial intestinal infections Telehealth Telehealth Location of provider rendering services: practice address Location of patient: address on file Patient Identification confirmed using: Name, : Yes Telehealth method: voice only Patient verbally consented to treatment: Yes Patient verbally consented to billing insurance company: Yes Patient informed of any privacy concerns related to visit: Yes Minutes spent on Phone/Video with Pt.: 36 Coding Level of Care Code Tele Est Pt Level 4 (12083) Diagnoses Morbid obesity E66.01 Time Spent (min) 36
[2023-07-23 10:25] VITALS: BMI 40.9
== END 2023-07-23 10:33 | disposition home or self-care (01) ==
LOC: HO.HBS 08:03
PROVIDERS: PCP Internal Medicine; Visit Provider Surgery
DX: E66.01 Morbid (severe) obesity due to excess calories (principal)
CPT/HCPCS: 99214

== ENCOUNTER → 2023-07-23 08:03 | Outpatient (BNVA) | payer OTHER, SELFPAY | PROVIDERS: PCP Internal Medicine; Visit Provider Surgery ==

== ENCOUNTER 2023-07-27 10:32 | Outpatient (AMB) | payer OTHER, SELFPAY ==
--- NOTE | 2023-07-27 10:21 | MHC.AMNUTRGE ---
Intake Intake Visit Reasons: (TV) F/U SWL Allergies No Known Allergies Allergy (Verified 07/18/23 13:22) HPI Nutrition Presentation Reason for consult elevated BMI Diet Assmnt Details She reports she met with Dr. Jolly the other day, and realized she wasn't following the plan . she feels much better now, more engery, stronger that she is eating enough protrein Pt is , from [place] , [place] . Has 6, 4, 2, years old lives with . States she normally eats a lot of high carb foods and is very sedentary. she is interested in learning more recipes and ways to modify recipes to fit her cultural food preferences and those of the family. Brothers had bariatric surgery and is doing very well. Dietary counseling reduction Diagnosis Nutrition problem #1 overweight/obesity As related to (etiology) #1 excess energy intake and physical inactivity As evidenced by (sign/symptom) #1 high BMI Monitoring/Goals Nutrition problem monitoring total energy intake, level of knowledge/skill, total PRO intake and weight Outcome progress progressing Learning/Education Readiness to learn good Stages of change action Educational materials provided Yes Most Recent Diabetes Results: No Data to Display [facility] Medical History Morbid obesity Social History Patient Tobacco Use Status: Never used Tobacco Assessment & Plan Assessment & Plan (1) Morbid obesity: Code(s): E66.01 - Morbid (severe) obesity due to excess calories Plan Patient is cleared from a nutrition standpoint for bariatric surgery. Educational requirements have been completed. Reviewed vitamin supplementation and commitment to protein shake for several months post surgery. Encouraged communication with office as needed Telehealth Telehealth Location of provider rendering services: practice address Location of patient: address on file Patient Identification confirmed using: Name, : Yes Telehealth method: voice only Patient verbally consented to treatment: Yes Patient verbally consented to billing insurance company: Yes Patient informed of any privacy concerns related to visit: Yes Minutes spent on Phone/Video with Pt.: 10 Coding Level of Care Code Nutr Indiv Subseq (96966) Diagnoses Morbid obesity E66.01 Time Spent (min) 10
== END 2023-07-27 10:35 | disposition home or self-care (01) ==
LOC: HO.HBS 10:32
PROVIDERS: PCP Internal Medicine; Visit Provider Dietitian, Registered
DX: E66.01 Morbid (severe) obesity due to excess calories (principal)

== ENCOUNTER → 2023-07-27 10:32 | Outpatient (BNVA) | payer OTHER, SELFPAY | PROVIDERS: PCP Internal Medicine; Visit Provider Dietitian, Registered | DX: E66.01 Morbid (severe) obesity due to excess calories (principal) | CPT/HCPCS: 97803 ==

== ENCOUNTER 2023-07-31 13:23 | Outpatient (AMB) | payer OTHER, SELFPAY ==
--- NOTE | 2023-07-31 13:06 | A.OFFWM_ITS ---
Intake Intake Visit Reasons: VIDEO BH F/U Allergies No Known Allergies Allergy (Verified 07/18/23 13:22) [facility] Medical History Morbid obesity Social History Patient Tobacco Use Status: Never used Tobacco Behavioral Health Assessment Weight Management Therapy Therapy Notes Details Frida stated that she is doing okay, was not on the correct meal plan and now is. She is loosing weight and feeling better. We discussed depression scale scores from intial visit and she reported being in a difficult place due to poor sleep and then her whole day feeling awful because of it. She has young children, one of which does not sleep through the night. Pt reported much improvement in her mood. Pt is looking to have weight loss surgery to help improve her health and quality of life. She denied any mental health history at all or problems with drugs or alcohol. Presenting Concerns Referral Source provider Reason for referral weight loss surgery evaluation Precipitating Event obesity Living Situation Current Living Situation Own At risk of losing current housing? No Satisfied with current living situation? Yes Comments Pt lives with her and her three kids ages 6, 4, and 2 years old. Food/Weight/Diet Expectations of change weight loss and maintenance History/Relationship with food She stated that her biggest struggle is sugar, sweets, cookies, soda. She grew up eating [place] food prior to moving here and would walk several miles a day. She also reported skipping meals and then eating large quantities. History/Relationship with weight Pt stated that she has been struggling with her weight for over ten years. Also reported that when she came here in 2004 she was thin. She started to gain weight in 2007 when she had access to any kind of food unlike her home country. History/Relationship with dieting several diets in the past, She would loose weight and then gain it back shortly after due to inconsistency. Binge Eating Do you frequently eat large amounts of food in short periods of time, not feeli ng physically hungry? No Do you feel out of control when you eat a large amount of food in a short period of time? No Do you eat large amounts of food rapidly and typically alone? No Night Eating Do you wake up at least once during the night to eat? No If you wake up in the night, do you find that it is necessary to eat something in order to fall back asleep? No Do you have little or no appetite in the morning and feel very hungry in the evening, often overeating between dinner and when you go to bed? No Social History Family history and relationship Pt was born and raised in [place]. She moved here in 2004. Pt is and has three young children. Pt is one of 4 siblings and her 3 brothers live in the [facility]. Pt father has and her mother lives close by. 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 Developmental history and status none Social support , mom Bahai/Spirituality Rastafarian Cultural/Ethnic information [place]gasque Legal Involvement and History Current or historical involvement with the legal system? none known Education Highest grade completed currently in college for social work Preferred learning style Auditory, Verbal, Written, Learn by doing and Visual Currently enrolled in educational program? No Interested in further educational program? No Educational Interests/Skills Pt is currently in school and raising three children. 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 No Meaningful activities patient walks in the treadmill everyday, dancing, singing, photography Financial Situation Describe current financial situation Comfortable Financial assistance? None Service Service? No Mental Health and Addiction Treatment Current/Past substance abuse? Yes Current/Past addictive behavior concerns? Yes Medications Is the patient compliant with medications? Yes Does the patient have Renee Guardian in place? Not applicable Does the patient use complimentary health approaches? Yes Trauma/Abuse History History of trauma? No Questionnaires PHQ-9 Over the last 2 weeks, how often have you been bothered by any of the following problems? 1. Little interest or pleasure in doing things: several days 2. Feeling down, depressed, or hopeless: several days 3. Trouble falling or staying asleep, or sleeping too much: several days 4. Feeling tired or having little energy: several days 5. Poor appetite or overeating: not at all 6. Feeling bad about yourself - or that you are a failure or have let yourself or your family down: several days 7. Trouble concentrating on things, such as reading the newspaper or watching television: not at all 8. Moving or speaking so slowly that other people could have noticed. Or the opposite - being so fidgety or restless that you have been moving around a lot more than usual: not at all 9. Thoughts that you would be better off or of hurting yourself in some way: not at all Total score: 5 Source: Developed by Drs. Jonny Cortés, Emili Gaona, Justin Lovelace and colleagues, with an educational sb from [employer]. Assessment & Plan Assessment & Plan (1) Unspecified nonpsychotic mental disorder: Code(s): F48.9 - Nonpsychotic mental disorder, unspecified Plan Patient reported doing well, she stated that she would like more support post operatively. She is cleared for surgery when ready. Telehealth Telehealth Location of provider rendering services: other Location of patient: address on file Patient Identification confirmed using: Name, : Yes Telehealth method: voice only Patient verbally consented to treatment: Yes Patient verbally consented to billing insurance company: Yes Patient informed of any privacy concerns related to visit: Yes Minutes spent on Phone/Video with Pt.: 20 Coding Level of Care Code Tele Psytx 30 mins (28737) Diagnoses Unspecified nonpsychotic mental disorder F48.9 Time Spent (min) 20
== END 2023-07-31 15:17 | disposition home or self-care (01) ==
LOC: HO.HBST 13:23
PROVIDERS: PCP Internal Medicine; Visit Provider Counselor Mental Health
DX: F48.9 Nonpsychotic mental disorder, unspecified (principal)
CPT/HCPCS: 90832

== ENCOUNTER → 2023-07-31 13:23 | Outpatient (BNVA) | payer OTHER, SELFPAY | PROVIDERS: PCP Internal Medicine; Visit Provider Counselor Mental Health | DX: F48.9 Nonpsychotic mental disorder, unspecified (principal) ==

== ENCOUNTER 2023-08-17 08:03 | Outpatient (AMB) | payer OTHER, SELFPAY ==
--- NOTE | 2023-08-17 10:02 | A.OFFVIS_ITS ---
Intake VS Expanded 08/17/23 10:15 Height 5 ft 4 in Weight 232 lb 6 oz BMI 39.9 Body Fat % 33.6 Body Fat Mass 78.1 Fat Free Mass 154.3 Visceral Fat Rating 20.4 Body Water % 45.5 Body Water Mass 105.8 Basal Metabolic Rate/Score 1,882 Intake Visit Reasons: TV Follow Up SWL Allergies No Known Allergies Allergy (Verified 07/18/23 13:22) HPI TV Follow Up SWL HPI Details Start time: 10.00am, End time: 10.20am ?I spent 15 minutes speaking with the patient on the phone plus an additional 5 minutes reviewing and updating records for a total of 20 minutes HPI Comments History of Present Illness Details Overall weight loss: 21.8lbs, or 8.57% TBWL Is doing 2 Isopure Infusions protein shakes (1/2 scoop in water), 1-2 Zone Perfect protein bars, meal (10 forks of protein and 10 forks of vegetables) Exercise: treadmill for 300 calories daily PFSH Medical History Morbid obesity Social History Patient Tobacco Use Status: Never used Tobacco Assessment & Plan Assessment & Plan (1) Obesity: Code(s): E66.9 - Obesity, unspecified Qualifiers: Obesity type: due to excess calories Obesity classification: adult class 2 (BMI 35 - 39.9) Serious obesity comorbidity presence: with serious comorbidity Body mass index: BMI 39.0-39.9 Qualified Code(s): E66.01 - Morbid (severe) obesity due to excess calories; Z68.39 - Body mass index [BMI] 39.0- 39.9, adult Plan: 1. Plan for lap sleeve gastrectomy including upper GI endoscopy. All tests has been completed and reviewed and the patient is cleared for the surgery. ?If diaphragmatic or ventral hernias are present at time of surgery, these will be repaired laparoscopically as well. Risks and complications were discussed in detail including possible conversion to an open procedure, anastomotic leak, bleeding requiring transfusion, small bowel obstruction, , DVT and pulmonary embolism, cardiac, or pulmonary complications, as intermediate complications such as anastomotic ulcer, insufficient weight loss and vitamin deficiencies. I emphasized the importance of close follow-up, adherence to instructions and good communication. So far she has proven to be an excellent communicator and very compliant with all our directions accomplishing a great weight loss. I believe that she is an excellent candidate and she is ready. 2. Continue same nutritional plan of 2 Isopure Infusions protein shakes (1/2 scoop in water), 1-2 Zone Perfect protein bars, meal (10 forks of protein and 10 forks of vegetables) 3. Exercise: continue treadmill but increase to 330 calories daily 4. Continue to send me weight measurements weekly on Mondays Telehealth Telehealth Location of provider rendering services: practice address Location of patient: address on file Patient Identification confirmed using: Name, : Yes Telehealth method: voice only Patient verbally consented to treatment: Yes Patient verbally consented to billing insurance company: Yes Patient informed of any privacy concerns related to visit: Yes Minutes spent on Phone/Video with Pt.: 20 Coding Level of Care Code Tele Est Pt Level 3 (24039) Diagnoses Class 2 severe obesity due to excess calories with serious comorbidity and body mass index (BMI) of 39.0 to 39.9 in adult E66.01; Z68.39 Obesity type: due to excess calories Obesity classification: adult class 2 (BMI 35 - 39.9) Serious obesity comorbidity presence: with serious comorbidity Body mass index: BMI 39.0-39.9 Time Spent (min) 20
[2023-08-17 10:15] VITALS: BMI 39.9
== END 2023-08-17 10:20 | disposition home or self-care (01) ==
LOC: HO.HBS 08:05
PROVIDERS: PCP Internal Medicine; Visit Provider Surgery
DX: E66.01 Morbid (severe) obesity due to excess calories (principal); Z68.39 Body mass index [BMI] 39.0-39.9, adult
CPT/HCPCS: 99213

== ENCOUNTER → 2023-08-17 08:03 | Outpatient (BNVA) | payer OTHER, SELFPAY | PROVIDERS: PCP Internal Medicine; Visit Provider Surgery ==

== ENCOUNTER 2023-08-20 09:46 | Outpatient (REF) | payer OTHER, SELFPAY ==
[2023-08-20 10:07] LABS: MANUAL DIFF FLAG NO
[2023-08-20 10:11] LABS: Basophils Percent Auto 0.5 % (0-2); Eosinophils Absolute Auto 0.2 X10*3/uL (0.0-0.4); Eosinophils Percent Auto 4.7 % (0-4); Hematocrit 32.3 % (37.0-47.0); Hemoglobin 10.6 g/dl (12.0-16.0); Imm Gran Abs Auto 0.01 X10*3/uL (0.00-0.03); Imm Gran Pct Auto 0.3 % (0.0-0.4); Lymphocytes Absolute Auto 1.6 X10*3/uL (1.2-4.9); Lymphocytes Percent Auto 42.5 % (20-40); Mean Corpuscular HGB Conc 32.8 g/dl (31.0-35.0); Mean Corpuscular Hemoglobin 25.9 pg (27.0-33.0); Monocytes Absolute Auto 0.2 X10*3/uL (0.1-1.2); Monocytes Percent Auto 5.3 % (2-11); Neutrophils Absolute Auto 1.8 x10*3/uL (2.0-8.3); Neutrophils Percent Auto 46.7 % (45-73); Platelet Count 200 X10*3/uL (160-400); Red Blood Count 4.09 X10*6/uL (4.20-5.50); Red Cell Distribution Width 15.4 % (11.0-16.0); White Blood Count 3.8 X10*3/uL (4.8-10.8)
[2023-08-20 10:15] LABS: Prothrombin Time 12.6 SEC (11.1-13.3)
[2023-08-20 11:26] LABS: Alanine Aminotransferase 16 U/L (0-31); Alkaline Phosphatase 61 U/L (39-117); Anion Gap 10 (12-20); Aspartate Amino Transferase 16 U/L (5-31); Bilirubin Total 0.4 mg/dL (0.0-1.0); Blood Urea Nitrogen 8 mg/dL (9-16); Calcium 9.2 mg/dL (8.4-10.2); Carbon Dioxide 28 mmol/L (22-29); Chloride 106 mmol/L (96-108); Estimated Glomerular Filt Rate > 60; Glucose Random 94 mg/dL (60-115); Potassium 3.5 mmol/L (3.3-5.1); Sodium 140 mmol/L (135-145); Total Protein 7.4 g/dL (6.5-8.0)
== END 2023-08-20 09:47 | disposition home or self-care (01) ==
LOC: HO.LAB 09:46
PROVIDERS: Visit Provider Surgery
DX: K80.20 Calculus of gallbladder without cholecystitis without obstruction (principal)
CPT/HCPCS: 36415; 80053; 85025; 85610; 85730; 86850; 86900; 86901

== ENCOUNTER 2023-08-23 11:04 | Day surgery (SDC) | payer OTHER, SELFPAY ==
--- NOTE | 2023-08-22 09:21 | HO.ANESPROP2 ---
Documented by User: Jessy Baires NP 08/22/23 09:22 HPI - Anesthesia Eval Consult details Narrative: 38yo F for Cholecystectomy Laparoscopic s/p EGD 06/2023 with TIVA PMFSH Active Problems Active Problems: All Active Problems (Updated 08/19/23 @ 15:07 by Cornelius Jolly MD) Cholelithiasis (Acute) Obesity (Acute) H. pylori infection (Acute) Unspecified nonpsychotic mental disorder (Acute) Constipation (Acute) Vitamin B1 deficiency (Acute) Vitamin A deficiency (Acute) Vitamin D deficiency (Acute) Anemia (Acute) Morbid obesity (Acute) Past Medical History Medical History Cholelithiasis Morbid obesity Family History Family history of problems with anesthesia: No Surgical History Surgical History (Updated 08/23/23 @ 12:52 by Sisi Florian RN) Hx of esophagogastroduodenoscopy History of Problems with Anesthesia: No Social History Social History Patient Tobacco Use Status: Never used Tobacco Are you DNR?: No Advance Directives: No Advance Directives Information Provided: Yes Nutrition Risks: No Nutritional Risk FDLMP: last week Meds Allergies Allergy/AdvReac Type Severity Reaction Status Date / Time No Known Allergies Allergy Verified 07/18/23 13:22 Home Medications Medication Instructions Recorded Confirmed Last Taken Type ferrous sulfate 325 mg (65 mg 325 mg PO BEDTIME 05/25/23 08/23/23 Unknown History iron) tablet,delayed release Exam Pertinent Lab Results Pertinent Lab Results: Laboratory Tests 08/20/23 09:55 Blood Type O Positive Antibody Screen NEGATIVE Laboratory Tests 08/20/23 09:57 WBC 3.8 L Hgb 10.6 L Hct 32.3 L Plt Count 200 D Sodium 140 Potassium 3.5 Chloride 106 Carbon Dioxide 28 BUN 8 L Creatinine 0.77 Narrative Narrative: EKG 05/2023 Vent. Rate : 078 BPM Atrial Rate : 078 BPM P-R Int : 166 ms QRS Dur : 090 ms QT Int : 404 ms P-R-T Axes : 055 000 023 degrees QTc Int : 460 ms Normal sinus rhythm with sinus arrhythmia Normal ECG No previous ECGs available Assessment and Plan Assessment Anesthesia Assessment: Chart Reviewed Final Anesthetic Review Family History of Problems with Anesthesia: No History of Problems with Anesthesia: No Documented by User: Suzi Manjarrez MD 08/23/23 13:03 [facility] Active Problems Active Problems: All Active Problems (Updated 08/23/23 @ 12:40 by Suzi Manjarrez MD) Cholelithiasis (Acute) Obesity (Acute) BMI 39.5 H. pylori infection (Acute) Unspecified nonpsychotic mental disorder (Acute) Constipation (Acute) Vitamin B1 deficiency (Acute) Vitamin A deficiency (Acute) Vitamin D deficiency (Acute) Anemia (Acute) Migraine headaches. Headaches have been more constant in last 3 days but same character as usual. No N/V. No visual changes. No dizziness/Faintness. No balance problems. No change in mental status. Headache has improved since she has been in [facility]. Using CPAP intermittently. Recently started use. Occassional headaches with CPAP Past Medical History Medical History Cholelithiasis Morbid obesity Family History Family history of problems with anesthesia: No Surgical History Surgical History (Updated 08/23/23 @ 12:52 by Sisi Florian RN) Hx of esophagogastroduodenoscopy History of Problems with Anesthesia: No Social History Social History Patient Tobacco Use Status: Never used Tobacco Are you DNR?: No Advance Directives: No Advance Directives Information Provided: Yes Nutrition Risks: No Nutritional Risk FDLMP: last week Meds Allergies Allergy/AdvReac Type Severity Reaction Status Date / Time No Known Allergies Allergy Verified 07/18/23 13:22 Home Medications Medication Instructions Recorded Confirmed Last Taken Type ferrous sulfate 325 mg (65 mg 325 mg PO BEDTIME 05/25/23 08/23/23 Unknown History iron) tablet,delayed release Exam Height,Weight and Vital Signs: Height 5 ft 4 in Weight 104.326 kg Vital Signs Temp Pulse Resp BP Pulse Ox O2 Del Method 08/23/23 11:43 97.6 F 71 18 154/84 H 100 Room Air Pertinent Lab Results Pertinent Lab Results: Laboratory Tests 08/20/23 09:55 Blood Type O Positive Antibody Screen NEGATIVE Laboratory Tests 08/20/23 09:57 WBC 3.8 L Hgb 10.6 L Hct 32.3 L Plt Count 200 D Sodium 140 Potassium 3.5 Chloride 106 Carbon Dioxide 28 BUN 8 L Creatinine 0.77 Laboratory Results - last 24 hr 08/23/23 11:10 Urine Test NEGATIVE Airway Mallampati Class: I TM Dist: >3cm Neck ROM: Full Loose/Missing/Broken Teeth: No (Denies broken, loose, missing teeth) Heart: RRR Lungs: CTAB Assessment and Plan Assessment Anesthesia Assessment: Anesthesia Plan Discussed and Chart Reviewed Final Anesthetic Review Family History of Problems with Anesthesia: No History of Problems with Anesthesia: No NPO: Yes ASA Class: III Final Preanesthetic Review: No Changes in Pt Med Stat, Meds/Allgs Chart Reviewed, Consent Obtained/Reviewed and Anes Risks/Benef Reviewed Patient Risk: Intermediate Procedure Risk: Intermediate Assessment/Block/Sedation in SS: Assess/Block/Sedation-SS Anesthetic Plan Anesthetic Plan: GA Disposition: Standard PACU
[2023-08-23] VITALS (15 sets, daily range): BP systolic 119–154; BP diastolic 71–84; PULSE 66–81; RESP 11–20; TEMP 36.4; O2SAT 96–100; BMI 39.5
--- NOTE | 2023-08-23 11:25 | PC.NURSE ---
author updated dr. short, who is going to discuss with surgeon. Patient arrived and stated that she has a very bad headache. Noted that patient is holding her head to the side, but denies neck, jaw, ear pain. Patient states that she has been having minor headaches for the last few months, but that they have been very bad the last 3 days to where she is using Tylenol throughout day/night. In discussion, patient stated that she slipped and fell on her back during the last day. Questioned if she remembers hitting her head, and patient stated I don't know. Questioned if headaches have worsened since this fall in the snow, and patient stated, now that you say that, they have definitely gotten worse since then with the most pain being the last 3 days.
[2023-08-23 11:35] LABS: UPreg QC Valid YES; Urine Pregnancy NEGATIVE (NEGATIVE)
--- NOTE | 2023-08-23 12:29 | MHC.SHP ---
Pre-Procedural Eval Section A - 24 Hr Update-Section A only Date of Service: 08/23/23 The patient is an INPATIENT: No The patient has been examined within 24 hours of the surgical procedure. The History & Physical has been completed within 30 days and I have reviewed it.: Yes Section B - Complete if H&P > 30 days Chief Complaint: Calculus of gallbladder with acute cholecystitis w Relevant Family History (Specify if Yes): No Relevant Social History: None Present Medications: None Medical History: No relevant PMH History of Previous Operations: No relevant previous surgery Allergies: Allergies Allergy/AdvReac Type Severity Reaction Status Date / Time No Known Allergies Allergy Verified 07/18/23 13:22 Review of Systems Sugical H&P ROS: Negative: Constitution, Cardiovascular, Respiratory, Neurological, Psychiatric, Hem-Onc, Allergic/Immunologic, Gastrointestinal, Genitourinary, Musculoskeletal, Integumentary, Endocrine and Eyes/Ears/Nose/Throat Exam Surgical H&P Exam: Normal: HEENT, Normal: Heart, Normal: Lungs, Normal: Extremities, Normal: Abdomen, Normal: Skin and Normal: Neurological Plan Diagnosis/Plan: Unchanged I have reviewed the history and physical and performed a pertinent physical examination on my patient. No changes have occurred unless specified. Time Spent With Patient Time: Total time managing care of this patient today ____ minutes.
--- NOTE | 2023-08-23 12:36 | P.BOP_ITS ---
Brief Operative Note Date of Service: 08/23/23 Pre-op diagnosis: Symptomatic cholelithiasis Post-op diagnosis: same (and abdominal adhesions) Procedure: PROCEDURE DATE: 08/23/2023 PREOPERATIVE DIAGNOSIS: Symptomatic cholelithiasis, morbid obesity with a body mass index of 39.3kg/sq. meters and comorbidities including anemia POSTOPERATIVE DIAGNOSIS: Same as above. PROCEDURE: Laparoscopic cholecystectomy Surgeon: Chandan Jolly M.D., Ph.D. Outsole Cutter Machine: Rocky Bolaños PA-C Anesthesia: General endotracheal anesthesia Estimated blood loss: Minimal FINDINGS AND PROCEDURE: OPERATIVE INDICATIONS: The patient is a 38 year old female known to me who was initially seen in my office for evaluation for refractory morbid obesity. During the preoperative workup, the patient was found to have cholelithiasis which appears to be symptomatic. I recommended cholecystectomy before the sleeve gastrectomy due to the higher risks of acute cholecystitis after the bariatric surgery as a result of the rapid weight loss. Risks and complications of the surgery were discussed with the patient in advance, particularly the postoperative bleeding, infection, DVT or PE, bile leak, major bile duct injury that may require additional surgical intervention, cardiac, pulmonary or renal complications among others. The patient understood the risks and was in agreement with the plan. PROCEDURE: After informed consent was obtained by the patient, the patient was transferred to the Operating Room and was placed in the supine position. The patient was given preoperative antibiotics and after successful induction of general anesthesia a Mederos catheter and pneumatic compression devices were placed. ? PLEASE REVIEW TO INCLUDE THIS PARAGRAPH An upper endoscopy was performed next, the oropharynx and esophagus appeared within the normal limits. There was no hiatal hernia. The stomach was entered, appeared to be of normal size, there was no gastritis or ulcer. At that point the stomach and esophagus was decompressed and the scope was withdrawn from the patient's mouth. The patient was then prepped and draped in the usual sterile manner and abdominal access was established with Annalisa technique. The abdomen was insufflated with C02 to a pr essure of 15 mmHg. A 5 mm Versi-step port was placed, slightly to the right and superior from the umbilicus. The 5 mm camera was introduced. We inspected the area where the port had been placed and there was no injury. The patient was then placed initially in a steep reverse Trendelenburg position and three additional ports were placed, specifically a 12 mm Versi-step port just to the right of the midline below the xiphoid process and two 5 mm Versi-step ports at the right upper quadrant and right flank. At that point the patient was placed in a steep reverse Trendelenburg position tilted to the left side. The gallbladder was retracted cephalad and laterally. There were adhesions between the omentum and the right side wall and the gallbladder wall that were taken down with the cautery. The peritoneal attachments of the gallbladder at the triangle of Calot posteriorly and anteriorly were taken down. The cystic duct and artery were both seen. They were completely dissected free, skeletonized all the way to the infundibulum of the gallbladder. In a similar fashion we also cleaned the liver bed just behind the cystic artery to make sure there was no additional structures in this area. Once we confirmed that both structures were entering into the gallbladder and there were no other structures in the area, they were both clipped with two clips proximally, one distally and were cut in- between. We then using the electrocautery we slowly took down the gallbladder from the liver bed. There was a small vein from the liver bed to the gallbladder wall which was clippped one clip and divided. There was no bleeding from the liver bed. After the gallbladder was completely detached from the liver bed, it was placed in an EndoCatch bag and was removed without difficulty from the xiphoid port. We then inspected the clips at the cystic duct and artery and were both in place. There was no active bleeding from the liver bed. At that point the patient was placed in supine position, we deflated the abdomen and we removed all ports under direct vision and no bleeding was noted from any of the port sites. The fascia of the 12 mm port was closed using a #1 Polysorb suture. 30cc 0.25% Ropivacaine plain were used to infiltrate the fascial closure as well as all skin incisions. 6ml of Zynrelef was applied in the Annalisa wound. The wounds were irrigated with saline mixed with antibiotic solution and then the skin was closed with 4-0 Monocryl subcuticular sutures antibiotic- coated. Steri-strips and OpSites were used to cover all incisions. The patient extubated and was transferred in stable condition to the Recovery Room for further care. I was present and performed all steps of the procedure. Mr. Bolaños was the physician assistant psychiatry. There were no residents to assist with this case. Chandan Jolly M.D., Ph.D., F.A.C.S. Surgeon: Cornelius Jolly MD Anesthesia: GETA, local and other (TAP block and 6ml Zynrelef) Was an Outsole Cutter Machine used for this Procedure?: No Outsole Cutter Machine: Rocky Bolaños Estimated blood loss (mL): 10 IV fluids (mL): 2,000 Urine output (mL): 0 (No Mederos to record output) Pathology: other (Gallbladder) Condition: stable Disposition: PACU
[2023-08-23] MEDS: Lactated Ringers 1,000 ML 100 ML IVCONT ×2 (12:37)
--- NOTE | 2023-08-23 12:38 | PC.NURSE ---
surgeon and anesthesiologist assessed patient and decided to proceed with surgery today.
[2023-08-23] MEDS: oxyCODONE HCl Immed Release 5 MG TABLET PO (16:10)
[2023-08-23] MEDS: fentaNYL citrate/PF 100 MCG/2 ML VIAL 25 MCG IVPUSH (16:10)
[2023-08-23] MEDS: ondansetron HCL 4 MG/2 ML VIAL IVPUSH (18:29)
== END 2023-08-23 18:50 | disposition home or self-care (01) ==
PROVIDERS: Nurse Practitioner; PCP Internal Medicine; Visit Provider Surgery
PROC: 0FT44ZZ Resection of Gallbladder, Percutaneous Endoscopic Approach (ICD-10-PCS; CPT 47562; principal; 2023-08-23 12:50)
DX: K80.10 Calculus of gallbladder with chronic cholecystitis without obstruction (principal); K80.12 Calculus of gallbladder with acute and chronic cholecystitis without obstruction; K82.8 Other specified diseases of gallbladder; R10.11 Right upper quadrant pain; D64.9 Anemia, unspecified; E66.01 Morbid (severe) obesity due to excess calories; Z68.39 Body mass index [BMI] 39.0-39.9, adult; Z79.899 Other long term (current) drug therapy
CPT/HCPCS: 47562; 43235; 81025; 86850; 86900; 86901; 88304; C9088; J0131; J0690; J1100; J1170; J1756; J2250; J2405; J2704; J2795; J3010

== ENCOUNTER → 2023-08-23 11:04 | Outpatient (BNV) | payer OTHER, SELFPAY | PROVIDERS: PCP Internal Medicine; Visit Provider Surgery | DX: K80.00 Calculus of gallbladder with acute cholecystitis without obstruction (principal); K66.0 Peritoneal adhesions (postprocedural) (postinfection) | CPT/HCPCS: 47562 ==

== ENCOUNTER → 2023-08-27 11:03 | Outpatient (BNVA) | payer OTHER, SELFPAY | PROVIDERS: PCP Internal Medicine; Visit Provider Physician Assistant Surgical ==

== ENCOUNTER 2023-08-27 11:44 | Outpatient (REF) | payer OTHER, SELFPAY ==
[2023-08-31 11:25] LABS: H Pylori Breath Test Negative (Negative)
== END 2023-08-27 11:45 | disposition home or self-care (01) ==
LOC: HO.LNP 11:44
PROVIDERS: Visit Provider Surgery
DX: E66.01 Morbid (severe) obesity due to excess calories (principal)
CPT/HCPCS: 83013

== ENCOUNTER 2023-08-31 15:27 | Outpatient (AMB) | payer OTHER, SELFPAY ==
--- NOTE | 2023-08-31 15:30 | MHC.OFFVISWM ---
Intake VS Expanded 08/31/23 15:33 BP 130/65 Blood Pressure Location Rt brachial Blood Pressure Position Sitting Pulse 99 Pulse Source Pulse Oximeter Temp 97.7 F Temperature Source Tympanic Pulse Oximetry 98 Oxygen Delivery Method Room Air Height 5 ft 8 in Weight 277 lb BMI 42.1 Body Fat % 37.7 Body Fat Mass 104.2 Fat Free Mass 145.6 Visceral Fat Rating 13.0 Body Water % 37.7 Body Water Mass 104.2 Muscle Mass/Score 138.2 Basal Metabolic Rate/Score 2,095 Intake Visit Reasons: (OV) 8 Days PO Lap Dea 08/23/23 Allergies No Known Allergies Allergy (Verified 07/18/23 13:22) HPI HPI Comments History of Present Illness Details Very pleasant 38-year-old female who returns to the office today in follow-up. She is 8 days status post laparoscopic cholecystectomy performed on 08/23/[address] Jolly. She states that she is doing well. Tolerating meal plan. No significant pain except if she is to lie on her right side. Other than that she has no complaints. PFSH Medical History Cholelithiasis Morbid obesity Surgical History (Updated 08/31/23 @ 15:58 by EDMUNDO Rodriguez) Hx laparoscopic cholecystectomy Hx of esophagogastroduodenoscopy Social History Patient Tobacco Use Status: Never used Tobacco Physical Exam Vital Signs: Last Vital Signs Temp 97.7 F 08/31/23 15:33 Pulse 99 08/31/23 15:33 BP 130/65 08/31/23 15:33 Pulse Ox 98 08/31/23 15:33 Oxygen Delivery Method Room Air 08/31/23 15:33 BMI result Body Mass Index 42.1 GI Other: Incisions are clean, dry, intact. Assessment & Plan Assessment & Plan (1) S/P laparoscopic cholecystectomy: Code(s): Z90.49 - Acquired absence of other specified parts of digestive tract Plan: Tolerated surgery well. No complaints. Continue current meal plan per Dr. Jolly. Continue surgical weight loss planning for upcoming bariatric surgery. Coding Level of Care Code Global (85168) Diagnoses S/P laparoscopic cholecystectomy Z90.49
[2023-08-31 15:33] VITALS: BP 130/65; PULSE 99; TEMP 36.5; O2SAT 98; BMI 42.1
== END 2023-08-31 15:59 | disposition home or self-care (01) ==
PROVIDERS: PCP Internal Medicine; Visit Provider Physician Assistant Surgical
DX: Z90.49 Acquired absence of other specified parts of digestive tract (principal)
CPT/HCPCS: 99024

== ENCOUNTER → 2023-08-31 15:27 | Outpatient (BNVA) | payer OTHER, SELFPAY | PROVIDERS: PCP Internal Medicine; Visit Provider Physician Assistant Surgical | DX: Z48.815 Encounter for surgical aftercare following surgery on the digestive system (principal); Z90.49 Acquired absence of other specified parts of digestive tract | CPT/HCPCS: 99212 ==

== ENCOUNTER 2023-09-24 11:28 | Outpatient (AMB) | payer OTHER, SELFPAY ==
--- NOTE | 2023-09-24 11:41 | MHC.WMTHER ---
Intake Intake Visit Reasons: TV BH F/U Allergies No Known Allergies Allergy (Verified 07/18/23 13:22) PFSH Medical History Cholelithiasis Morbid obesity Surgical History (Updated 08/31/23 @ 15:58 by EDMUNDO Rodriguez) Hx laparoscopic cholecystectomy Hx of esophagogastroduodenoscopy Social History Patient Tobacco Use Status: Never used Tobacco Behavioral Health Assessment Weight Management Therapy Therapy Notes Details Today patient reported feeling very nervous for upcoming sleeve surgery, especially since getting the date of it, has been online constantly researching and thinking about. She is also rcovering from gallbladder surgery and is still having some pain. Patient stated that she had neever had any kind of surgery and now is having another one in a shot period of time. Assessment & Plan Assessment & Plan (1) Unspecified nonpsychotic mental disorder: Code(s): F48.9 - Nonpsychotic mental disorder, unspecified Plan Patient reported doing well, she stated that she would like more support post operatively. She is cleared for surgery when ready. Today patient reported feeling very nervous for upcoming sleeve surgery, especially since getting the date of it, has been online constantly researching and thinking about. We discussed about her why and revisiting why she started this program to begin with to help keep it in the forefront of her mind. Also invited her to group/support therapy. Telehealth Telehealth Location of provider rendering services: other Location of patient: address on file Patient Identification confirmed using: Name, : Yes Telehealth method: voice only Patient verbally consented to treatment: Yes Patient verbally consented to billing insurance company: Yes Patient informed of any privacy concerns related to visit: Yes Minutes spent on Phone/Video with Pt.: 25 Coding Level of Care Code Tele Psytx 30 mins (08445) Diagnoses Unspecified nonpsychotic mental disorder F48.9 Time Spent (min) 25
== END 2023-09-24 11:56 | disposition home or self-care (01) ==
LOC: HO.HBST 11:28
PROVIDERS: PCP Internal Medicine; Visit Provider Counselor Mental Health
DX: F48.9 Nonpsychotic mental disorder, unspecified (principal)
CPT/HCPCS: 90832

== ENCOUNTER → 2023-09-24 11:28 | Outpatient (BNVA) | payer OTHER, SELFPAY | PROVIDERS: PCP Internal Medicine; Visit Provider Counselor Mental Health ==

== ENCOUNTER 2023-10-03 08:39 | Outpatient (AMB) | payer OTHER, SELFPAY ==
--- NOTE | 2023-10-03 12:09 | A.OFFVIS_ITS ---
Intake Intake Visit Reasons: TV Pre Op LSG 10/11/2023 Allergies No Known Allergies Allergy (Verified 10/03/23 12:09) Medication List - Last Reconciled 10/03/23 by Cornelius Jolly MD cholecalciferol (vitamin D3) 125 mcg PO DAILY docusate sodium (Colace) 100 mg PO DAILY iron,carbonyl-vitamin C 65 mg iron- 125 mg (Vitron-C) 1 tab PO BEDTIME ondansetron 4 mg PO Q12H pantoprazole 40 mg PO DAILY polyethylene glycol 3350 (Miralax) 17 grams PO DAILY sucralfate 10 mL PO BID thiamine HCl (vitamin B1) 100 mg PO DAILY vitamin A palmitate 10,000 units PO DAILY HPI TV Pre Op LSG 10/11/2023 HPI Details Start time: 12.02pm, End time: 12.22pm ?I spent 15 minutes speaking with the patient on the phone plus an additional 5 minutes reviewing and updating records for a total of 20 minutes HPI Comments History of Present Illness Details Overall weight loss: 35.3lbs, or 13.9% TBWL Is doing 2 Isopure protein shakes (1/2 scoop in 8oz water), one Zone Perfect protein bar, one meal (10 forks of protein and 10 forks of salad or vegetables) Exercise: is doing treadmill 380 calories per day, daily PFSH Medical History (Updated 09/28/23 @ 13:02 by Kate Ambrocio RN) Back pain Prediabetes Sickle cell trait Hiatal hernia Incontinence in female Overactive bladder Sleep apnea Cholelithiasis Morbid obesity Surgical History (Updated 08/31/23 @ 15:58 by EDMUNDO Rodriguez) Hx laparoscopic cholecystectomy Hx of esophagogastroduodenoscopy Social History Are you a primary home care giver to a significant other at home: No Do you presently have visiting nurse or other home services: No Patient Tobacco Use Status: Never used Tobacco Assessment & Plan Assessment & Plan (1) Obesity: Code(s): E66.9 - Obesity, unspecified Qualifiers: Obesity type: due to excess calories Obesity classification: adult class 2 (BMI 35 - 39.9) Serious obesity comorbidity presence: with serious comorbidity Body mass index: BMI 39.0-39.9 Qualified Code(s): E66.01 - Morbid (severe) obesity due to excess calories; Z68.39 - Body mass index [BMI] 39.0- 39.9, adult Plan: 1. Plan for lap sleeve gastrectomy including upper GI endoscopy. All tests has been completed and reviewed and the patient is cleared for the surgery. ?If diaphragmatic or ventral hernias are present at time of surgery, these will be repaired laparoscopically as well. Risks and complications were discussed in detail including possible conversion to an open procedure, anastomotic leak, bleeding requiring transfusion, small bowel obstruction, , DVT and pulmonary embolism, cardiac, or pulmonary complications, as intermediate complications such as anastomotic ulcer, insufficient weight loss and vitamin deficiencies. I emphasized the importance of close follow-up, adherence to instructions and good communication. So far she has proven to be an excellent communicator and very compliant with all our directions accomplishing a great weight loss. I believe that she is an excellent candidate and she is ready. 2. Preop prescriptions were provided and explained the purpose of each one. Need to be purchased preop. Start Pantoprazole now as you get it from the pharmacy, 1 pill per day. Sucralfate and Zofran are for after surgery as needed. 3. Bowel prep: please do 7 packets ?of Miralax mixing each one with a an 8oz glass of water, crystal light, gatorade zero, or propel ?on 10/09/23 and the same amount on 10/10/23. The Miralax you begin with one packet at a time in 8oz water or crystal light, gatorade zero, or propel ?as early in the day as you can and you do them back to back until you finish them. Continue the protein shakes during? the bowel prep. 4. Needs to purchase 1oz medicine cups . 5. Needs to purchase Children's liquid Tylenol for postop pain control. 6. Avoid aspirin, motrin, Advil, Aleve, Ibuprofen, Naproxyn. Tylenol is OK. 7. She needs to purchase the Celebrate 4:1 protein shakes from the hospital's gift [facility]. 8. Will do basic preop blood work-up any day between 10/04/23 and Sunday10/05/23 fasting for 12 hours and is scheduled to see the Anesthesiologist prior to the day of surgery. 9. Importance of adherence to postop folllow-up and recommendations was underscored and she understands that. 10. Stop food and bars as of tomorrow 12/28/20 and continue with 3 Isopure protein shakes (1/2 scoop in 8oz of water) at 7am-9am, 10am-12pm and 1pm-3pm and two more Isopure protein shakes with ONE scoop EACH in 8oz of water at 4pm-6pm and 7pm-9pm 11. No soups, broths or V8 12. The patient's?medical?history has been reviewed and they are considered low risk for post op DVT and therefore DVT prophylaxis is not considered necessary. Travel after surgery was reviewed. The patient has not disclosed any travel plans during the first 30 days after surgery and they have been advised that within the first 30 days after surgery any bus, plane, train or car travel over 2 hours in duration is contraindicated due to the possibility of developing blood clots from immobility. Any travel, needs to include periods of ambulation of 10 minutes in duration every 2 hours.? Patient was instructed to discuss any plans for travel during this period with their bariatric surgeon.? 13. Please take at the day of surgery the following medications: NONE 14. Stop any control pills and don't use them for one month after surgery 15. Absolutely no smoking or vaping, or marijuana until the surgery and for at least the first 4 weeks. Only nicotine patches are allowed. 16. Send me weight measurements on and then on the day of surgery before you go to the hospital. 17. Avoid any steroids by mouth for any reason. Let me know if someone prescribes them to you 18. These instructions supersede anything else you read in the handbook, anything you watched in videos or classes or you were told by any other provider. If there is any conflict, you follow the above instructions and nothing else. Orders: Orders Prothrombin Time INR Today E66.01 - Morbid (severe) obesity due to excess calories, Z68.39 - Body mass index [BMI] 39.0-39.9, adult Type and Screen Today E66.01 - Morbid (severe) obesity due to excess calories, Z68.39 - Body mass index [BMI] 39.0-39.9, adult Lipid Panel Today E66.01 - Morbid (severe) obesity due to excess calories, Z68.39 - Body mass index [BMI] 39.0-39.9, adult Complete Blood Count Auto Diff Today E66.01 - Morbid (severe) obesity due to excess calories, Z68.39 - Body mass index [BMI] 39.0-39.9, adult Insulin Today E66.01 - Morbid (severe) obesity due to excess calories, Z68.39 - Body mass index [BMI] 39.0-39.9, adult TSH reflex Free T4 Today E66.01 - Morbid (severe) obesity due to excess hamilton ories, Z68.39 - Body mass index [BMI] 39.0-39.9, adult Comprehensive Met. Panel Today E66.01 - Morbid (severe) obesity due to excess calories, Z68.39 - Body mass index [BMI] 39.0-39.9, adult Partial Thromboplastin Time Today E66.01 - Morbid (severe) obesity due to excess calories, Z68.39 - Body mass index [BMI] 39.0-39.9, adult C Reactive Protein Today E66.01 - Morbid (severe) obesity due to excess calories, Z68.39 - Body mass index [BMI] 39.0-39.9, adult Hemoglobin A1c Today E66.01 - Morbid (severe) obesity due to excess calories, Z68.39 - Body mass index [BMI] 39.0-39.9, adult Medications: New pantoprazole 40 mg PO DAILY 90 tabs 0RF K21.9 - Gastro-esophageal reflux disease without esophagitis sucralfate 10 mL PO BID 600 mL 0RF K21.9 - Gastro-esophageal reflux disease without esophagitis ondansetron Only take one every 12 hours as needed if you have nausea 4 mg PO Q12H 20 tabs 0RF nausea and vomiting R11.0 - Nausea polyethylene glycol 3350 (Miralax) Mix each packet with 8oz of water, Crystal light, or Gatorade zero, or Propel and do 7 packets on 10/09/23 and another 7 packets on 10/10/23 17 grams PO DAILY 14 ea 0RF Z01.818 - Encounter for other preprocedural examination Telehealth Telehealth Location of provider rendering services: practice address Location of patient: address on file Patient Identification confirmed using: Name, : Yes Telehealth method: voice only Patient verbally consented to treatment: Yes Patient verbally consented to billing insurance company: Yes Patient informed of any privacy concerns related to visit: Yes Minutes spent on Phone/Video with Pt.: 20 Coding Level of Care Code Tele Est Pt Level 3 (93511) Diagnoses Class 2 severe obesity due to excess calories with serious comorbidity and body mass index (BMI) of 39.0 to 39.9 in adult E66.01; Z68.39 Obesity type: due to excess calories Obesity classification: adult class 2 (BMI 35 - 39.9) Serious obesity comorbidity presence: with serious comorbidity Body mass index: BMI 39.0-39.9 Time Spent (min) 20
== END 2023-10-03 12:23 | disposition home or self-care (01) ==
LOC: HO.HBS 08:39
PROVIDERS: PCP Internal Medicine; Visit Provider Surgery
DX: E66.01 Morbid (severe) obesity due to excess calories (principal); Z68.39 Body mass index [BMI] 39.0-39.9, adult
CPT/HCPCS: 99499

== ENCOUNTER → 2023-10-03 08:39 | Outpatient (BNVA) | payer OTHER, SELFPAY | PROVIDERS: PCP Internal Medicine; Visit Provider Surgery ==

== ENCOUNTER → 2023-10-05 10:43 | Outpatient (BNVA) | payer OTHER, SELFPAY | PROVIDERS: PCP Internal Medicine; Visit Provider Physician Assistant Surgical ==

== ENCOUNTER 2023-10-11 07:30 | Inpatient (IN) | payer OTHER, SELFPAY ==
[2023-09-28 13:21] VITALS: BMI 37.8
[2023-10-05 11:29] LABS: MANUAL DIFF FLAG NO
[2023-10-05 12:18] LABS: Basophils Percent Auto 0.7 % (0-2); Eosinophils Absolute Auto 0.2 X10*3/uL (0.0-0.4); Eosinophils Percent Auto 4.8 % (0-4); Hemoglobin 11.7 g/dl (12.0-16.0); Lymphocytes Absolute Auto 2.3 X10*3/uL (1.2-4.9); Lymphocytes Percent Auto 53.1 % (20-40); Mean Corpuscular HGB Conc 33.4 g/dl (31.0-35.0); Mean Corpuscular Hemoglobin 27.6 pg (27.0-33.0); Mean Corpuscular Volume 82.5 fL (80.0-98.0); Monocytes Absolute Auto 0.3 X10*3/uL (0.1-1.2); Neutrophils Absolute Auto 1.5 x10*3/uL (2.0-8.3); Neutrophils Percent Auto 35.4 % (45-73); Platelet Count 201 X10*3/uL (160-400); Red Blood Count 4.24 X10*6/uL (4.20-5.50); Red Cell Distribution Width 14.1 % (11.0-16.0); White Blood Count 4.4 X10*3/uL (4.8-10.8)
[2023-10-05 12:25] LABS: INTERNATIONAL NORM RATIO 1.1 (0.9-1.1); Prothrombin Time 12.8 SEC (11.1-13.3)
[2023-10-05 12:27] LABS: Partial Thromboplastin Time 34.3 SEC (26.0-36.8)
[2023-10-05 13:23] LABS: Alanine Aminotransferase 19 U/L (0-31); Albumin Level 4.3 g/dL (3.5-5.0); Alkaline Phosphatase 66 U/L (39-117); Anion Gap 12 (12-20); Aspartate Amino Transferase 17 U/L (5-31); Bilirubin Total 0.4 mg/dL (0.0-1.0); Blood Urea Nitrogen 12 mg/dL (9-16); C Reactive Protein 0.79 mg/dL (< or = 0.50); Calcium 9.4 mg/dL (8.4-10.2); Carbon Dioxide 26 mmol/L (22-29); Chloride 108 mmol/L (96-108); Cholesterol 148 mg/dL (<200); Creatinine Clr Calc Pharmacy 111.6; Estimated Glomerular Filt Rate > 60; Glucose Random 84 mg/dL (60-115); HDL Cholesterol 32 mg/dL (>40); LDL Cholesterol Calculated 104 mg/dL (<100); Potassium 3.7 mmol/L (3.3-5.1); Sodium 142 mmol/L (135-145); Triglycerides 64 mg/dL (<150)
[2023-10-05 13:26] LABS: Insulin 8 uU/mL (2-29); TSH reflex Free T4 1.47 uIU/mL (0.32-4.0)
[2023-10-05 13:38] LABS: Estimated Average Glucose 103 mg/dL; Hemoglobin A1c % 5.2 % (<6.0)
--- NOTE | 2023-10-10 12:27 | P.CONAN_ITS ---
Documented by User: Abigail Walters MD 10/11/23 11:16 [facility] Past Medical History Medical History Back pain Prediabetes Sickle cell trait Hiatal hernia Incontinence in female Overactive bladder Sleep apnea Cholelithiasis Morbid obesity Surgical History Surgical History Hx laparoscopic cholecystectomy Hx of esophagogastroduodenoscopy Social History Social History Are you a primary palliative care specialist to a significant other at home: No Do you presently have visiting nurse or other home services: No Patient Tobacco Use Status: Never used Tobacco Use of substances other than those prescribed or required for medical reasons: No Have you been hit, kicked, punched, or otherwise hurt by someone within the past year? If so, by whom?: No Are you DNR?: No Advance Directives: No Advance Directives Information Provided: No Advance Directives on File: No Recently lost weight without trying: No Nutrition Risks: No Nutritional Risk Patient : No : No Poor oral hygiene: No Meds Allergies Allergy/AdvReac Type Severity Reaction Status Date / Time No Known Allergies Allergy Verified 10/03/23 12:09 Home Medications ?Medication ?Instructions ?Recorded ?Confirmed ?Last Taken ?Type iron,carbonyl 65 mg-vitamin C 125 1 tab PO BEDTIME 09/28/23 10/11/23 10/09/23 History mg tablet,delayed release (Vitron-C) Exam Airway Mallampati Class: II TM Dist: >3cm Neck ROM: Full Loose/Missing/Broken Teeth: No Heart: RRR Lungs: CTA Assessment and Plan Assessment Anesthesia Assessment: Anesthesia Plan Discussed and Chart Reviewed Final Anesthetic Review NPO: Yes ASA Class: III Final Preanesthetic Review: Meds/Allgs Chart Reviewed, Consent Obtained/Reviewed and Anes Risks/Benef Reviewed Patient Risk: Intermediate Procedure Risk: Intermediate Anesthetic Plan Anesthetic Plan: GA Disposition: Standard PACU Documented by User: Suzi Manjarrez MD [facility] Active Problems Active Problems: All Active Problems S/P laparoscopic cholecystectomy (Acute) Obesity (Acute) H. pylori infection (Acute) Unspecified nonpsychotic mental disorder (Acute) Constipation (Acute) Vitamin B1 deficiency (Acute) Vitamin A deficiency (Acute) Vitamin D deficiency (Acute) Anemia (Acute) Cholelithiasis (Acute) Morbid obesity (Acute) Past Medical History Medical History Back pain Prediabetes Sickle cell trait Hiatal hernia Incontinence in female Overactive bladder Sleep apnea Cholelithiasis Morbid obesity Family History Family history of problems with anesthesia: No Surgical History Surgical History Hx laparoscopic cholecystectomy Hx of esophagogastroduodenoscopy History of Problems with Anesthesia: No Social History Social History Are you a primary palliative care specialist to a significant other at home: No Do you presently have visiting nurse or other home services: No Patient Tobacco Use Status: Never used Tobacco Use of substances other than those prescribed or required for medical reasons: No Have you been hit, kicked, punched, or otherwise hurt by someone within the past year? If so, by whom?: No Are you DNR?: No Advance Directives: No Advance Directives Information Provided: No Advance Directives on File: No Recently lost weight without trying: No Nutrition Risks: No Nutritional Risk Patient : No : No Poor oral hygiene: No Meds Allergies Allergy/AdvReac Type Severity Reaction Status Date / Time No Known Allergies Allergy Verified 10/03/23 12:09 Home Medications ?Medication ?Instructions ?Recorded ?Confirmed ?Last Taken ?Type iron,carbonyl 65 mg-vitamin C 125 1 tab PO BEDTIME 09/28/23 10/11/23 10/09/23 History mg tablet,delayed release (Vitron-C) Exam Height,Weight and Vital Signs: Height 5 ft 4 in Weight 99.79 kg Pertinent Lab Results Pertinent Lab Results: Laboratory Tests 10/05/23 11:28 WBC 4.4 L RBC 4.24 Hgb 11.7 L Hct 35.0 L MCV 82.5 MCH 27.6 MCHC 33.4 RDW 14.1 Plt Count 201 MPV 10.0 Immature Gran % (Auto) 0.0 Neut % (Auto) 35.4 L Lymph % (Auto) 53.1 H [place] % (Auto) 6.0 Eos % (Auto) 4.8 H Baso % (Auto) 0.7 Lymph # (Auto) 2.3 [place] # (Auto) 0.3 Eos # (Auto) 0.2 Baso # (Auto) 0.0 Abs Immat Gran (auto) 0.00 Absolute Neuts (auto) 1.5 L Absolute Nucleated RBC 0.000 Nucleated RBC % (auto) 0.0 PT 12.8 INR 1.1 APTT 34.3 Sodium 142 Potassium 3.7 Chloride 108 Carbon Dioxide 26 Anion Gap 12 BUN 12 Creatinine 0.80 Estim Creat Clear Calc 111.6 Estimated GFR > 60 Random Glucose 84 Estimat Average Glucose 103 Hemoglobin A1c % 5.2 Insulin Level 8 Calcium 9.4 Total Bilirubin 0.4 AST 17 ALT 19 Alkaline Phosphatase 66 C-Reactive Protein 0.79 H Total Protein 8.0 Albumin 4.3 Triglycerides 64 Cholesterol 148 LDL Cholesterol, Calc 104 H HDL Cholesterol 32 L TSH 1.47 Assessment and Plan Final Anesthetic Review Family History of Problems with Anesthesia: No History of Problems with Anesthesia: No
[2023-10-11] VITALS (11 sets, daily range): BP systolic 120–148; BP diastolic 71–89; PULSE 71–90; RESP 13–18; TEMP 36–36.9; O2SAT 97–100; BMI 41.7
[2023-10-11 07:49] LABS: UPreg QC Valid YES; Urine Pregnancy NEGATIVE (NEGATIVE)
[2023-10-11] MEDS: Lactated Ringers 1,000 ML 100 ML IVCONT ×2 (07:58→14:16)
--- OUTSIDE RECORDS SUMMARY | 2023-10-11 07:59 | XMS_ITS | Continuity of Care Document ---
Author Organization [facility] Address [address] [place] [address]- Care Team Providers Care Internal Consultant Name Role Phone Yoli Sunshine MD, V [facility] Care [id number] - 09[facility]/23 [facility] [address] [place] [address]- Attending Physician: Bryan Avalos DO Admitting Physician: Bryan Avalos DO Referring Physician: Yoli Sunshine MD, V Allergies, [...] 11 Refills, Maintenance, 04/16/23 13:48:00 EDT, [id number], Partial fill upon patient request if the [...] Personnel Name: Jong TRIPATHI, Yoli Valverde Position: [facility] Physician - Primary Care Member Role: PCP Address: Address: [address] [place] [address]- Care Team Related Persons Name: ADEBAYO VASQUEZ Address: home [address] [place] [address]
--- OUTSIDE RECORDS SUMMARY | 2023-10-11 07:59 | XMS_ITS | Continuity of Care Document ---
Author Organization [facility] Address [address] [place] [id number]- Care Team Providers Care Superintendent Plant Name Role Phone Yoli Sunshine MD, V Primary Care Physician Encounter [facility] [place] Date(s): 07/08/23 - 08/13/[address] [address]- Attending Physician: Bryan Avalos DO Admitting Physician: Bryan Avalos DO Referring Physician: Bryan Avalos DO Allergies, Adverse Reactions, Alerts No Known Allergies Medications ferrous sulfate 325 mg oral enteric coated tablet 325 mg, 1, tablet, By Mouth, Daily at bedtime, may take with food to minimize abdominal discomfort.take with orange juice., # 30 tablet, Refills 3, Tot. Refills 3, Maintenance, 10/30/22 13:13:00 EDT, Route to Pharmacy Electronically, [facility] #... Start Date: 10/30/22 Status: Ordered mirabegron 25 mg oral tablet, extended release 1 tablet = 25 mg, By Mouth, Daily, # 30 tablet, 11 Refills, Maintenance, 04/16/23 13:48:00 EDT, [facility] #[id number], Partial fill upon patient request if the [...] Personnel Name: Jong TRIPATHI, Yoli Valverde Position: [facility] Physician - Primary Care Member Role: PCP Address: Address: [address] [place] [id number]- Care Team Related Persons Name: ADEBAOY VASQUEZ Address: home [address] [place] [address]
[2023-10-11] MEDS: Aprepitant 32 MG/4.4 ML VIAL IVPUSH (08:03)
[2023-10-11] MEDS: Lactated Ringers 1,000 ML 999 ML IV (08:56)
--- NOTE | 2023-10-11 08:57 | PC.NURSE ---
pt received 1 liter of fluid in preop
--- NOTE | 2023-10-11 10:16 | MHC.SHP ---
Pre-Procedural Eval Section A - 24 Hr Update-Section A only Date of Service: 10/11/23 The patient is an INPATIENT: Yes The patient has been examined within 24 hours of the surgical procedure. The History & Physical has been completed within 30 days and I have reviewed it.: Yes Section B - Complete if H&P > 30 days Chief Complaint: Obesity Relevant Family History (Specify if Yes): No Relevant Social History: None Present Medications: None Medical History: No relevant PMH History of Previous Operations: No relevant previous surgery Allergies: Allergies Allergy/AdvReac Type Severity Reaction Status Date / Time No Known Allergies Allergy Verified 10/03/23 12:09 Review of Systems Sugical H&P ROS: Negative: Constitution, Cardiovascular, Respiratory, Neurological, Psychiatric, Hem-Onc, Allergic/Immunologic, Gastrointestinal, Genitourinary, Musculoskeletal, Integumentary, Endocrine and Eyes/Ears/Nose/Throat Exam Surgical H&P Exam: Normal: HEENT, Normal: Heart, Normal: Lungs, Normal: Extremities, Normal: Abdomen, Normal: Skin and Normal: Neurological Plan Diagnosis/Plan: Unchanged I have reviewed the history and physical and performed a pertinent physical examination on my patient. No changes have occurred unless specified. Time Spent With Patient Time: Total time managing care of this patient today ____ minutes.
--- NOTE | 2023-10-11 10:22 | P.BOP_ITS ---
Brief Operative Note Date of Service: 10/11/23 Pre-op diagnosis: Severe obesity with comorbidities (see beow) Post-op diagnosis: same Procedure: INITIAL PATIENT BMI ON PRESENTATION AT OUR OFFICE: 43.7 kg/m2 LAST BMI BEFORE SURGERY: 37.4 kg/m2 COMORBIDITIES: anemia, GERD ?The patient presented to the Weight Management Program with significant obesity that was negatively impacting the patient's comorbidities as listed above.? The program is a phased program with a special focus on preoperative medical weight management to promote substantial weight loss and prepare the patients for the second phase of the program: bariatric surgery. The patient participated in an intensive weekly lifestyle ?intervention and exercise program during which the patient ?has lost between the initial office visit and the last preoperative visit 35.3lbs, or 13.88% of initial actual body weight. It was deemed appropriate for the patient to now have bariatric surgery. In light of the current Covid-19 pandemic and the well documented strong association of obesity and increased risk of worse outcomes if infected with Covid-19 (REFERENCES: https://pubmed.ncbi.nlm.nih.gov/70869977/ ,? https://pubmed.ncbi.nlm.nih.gov/18910701/ ), any delay in undergoing bariatric surgery may lead to the patient's worsening health condition and increased?risk of more severe Covid-19 disease if infected. In addition a recent?study from [facility] published in [employer] on 06/20/2021 ([email or web address]) found that, among patients with obesity, substantial weight loss achieved with surgery was associated with improved outcomes of COVID-19 infection. The findings suggest that obesity can be a modifiable risk factor for the severity of COVID-19 infection. In addition, the patient met the BMI-criteria for bariatric surgery based on the BMI on initial presentation. The patient should not be penalized for achieving such weight loss because ?it is not sustainable long-term without surgical intervention and it was achieved in preparation for bariatric surgery ?under my direction and based on my published research ([email or web address]:/[email or web address]).pdf and? https://www.soard.org/article/[email or web address](42)71217-X/pdf ) ?that a 10% preoperative weight loss improves long-term weight loss after surgery and reduces perioperative complications.? Insurance carriers such as [facility] have endorsed my recommendations ?and have included in their policies criteria to include a 10% preoperative weight loss requirement. PROCEDURE: Esophago-gastroscopy, laparoscopic sleeve gastrectomy and laparoscopic gastropexy INDICATIONS: This is a 38 year-old female who was electively scheduled for laparoscopic, possibly open sleeve gastrectomy. The risks and complications of the procedure were discussed with the patient in advance, particularly the possibility of ; pulmonary embolism; staple line leak; bleeding; GERD; cardiac, pulmonary, or renal complications; as well as long-term problems such as insufficient weight loss, vitamin deficiency, strictures, or ulcers. The patient understood all the risks, and was in agreement to proceed with surgery. DESCRIPTION OF PROCEDURE: After informed consent was obtained from the patient, the patient was given preoperative antibiotics, and was transferred to the operating room. After successful induction of general anesthesia, pneumatic compression devices were placed on both lower extremities. An upper endoscopy was performed next. The oropharynx and esophagus appeared to be within normal limits. There was no diaphragmatic hernia present. The stomach was entered. Then after all fluid and air were suctioned and the stomach was fully decompressed, the scope was withdrawn and secured in the mid esophagus. The patient was then prepped and draped in the usual sterile manner, and abdominal access was established at the right upper quadrant with the Annalisa technique. A 12 mm blunt port was inserted, and the abdomen was insufflated with CO2 to a pressure of 15 mmHg. Under direct visualization, additional ports were placed, specifically two 5 mm Versi-step ports to the left upper quadrant, and a 5 mm Versi-Step port to the right upper quadrant. 1% lidocaine plain was used to infiltrate all port sites as well as all fascia defects. Following that, the patient was placed in a steep reverse Trendelenburg position. An additional 5 mm port was placed to the right flank for the Mediflex retractor that was used to retract the left lobe of the liver. The gastro-esophageal fat pad was opened with the ultrasonic device (Thunderbeat, Olympus) and the anterior esophagus and hiatus were exposed. The angle of His was opened with the ultrasonic device the fundus of the stomach from any diaphragmatic and splenic attachments. I then opened the gastrocolic ligament between the transverse colon and the greater curvature of the stomach with the ultrasonic device to enter the lesser sac and facilitate the ligation of the short gastric vessels. I started at a mid-point along the greater curvature and using the Thunderbeat, all short gastr ic vessels were divided all the way to the angle of His until the left george was completely dissected at its entirety. I then divided the gastro-colic ligament distally to a distance of about 3-4 cm proximal to the pylorus. The stomach was then divided transversely with three Endo KINJAL-45 purple and four KINJAL-60 articulating purple loads using the Foodem stapler and loads. Every effort was made that the gastric sleeve had a tubular shape and an even caliber throughout. Once the sleeve resection was completed, the staple line of the gastric sleeve was reinforced with Hemoclips. The resected stomach was retrieved without difficulty from the Annalisa port. A gastropexy was then performed in order to prevent postoperative GERD and partial gastric volvulus. Several interrupted 2.0 Surgidac sutures were placed between the sleeve's staple line and the previously divided greater omentum and gastro-colic ligament using the Endo-Stitch device. ?An upper endoscopy was performed. There was no narrowing at the GE junction. The scope was easily advanced all the way to the pylorus which was clearly visualized. There was no narrowing anywhere and the sleeve's caliber was even throughout. The sleeve's staple line was inspected and there was no evidence of ischemia, bleeding or dehiscence. At that point the gastroscope was withdrawn from the patient?s mouth while we were decompressing the bowel and the stomach from any remaining air. I looked into the lesser sac to see how the sleeve was situating and it was situating well. There was no bleeding from the staple line, spleen, or short gastric vessels. The Mediflex retractor was removed, and the undersurface of the liver was inspected and there was no bleeding. The patient was placed in supine position. I closed the fascial defect of the 12 mm port site with a figure of eight #1 Polysorb suture. Then 30cc Ropivacaine plain with 10 mg of Dexamethasone were used to infiltrate the fascial closure as well as all skin incisions. A total of 6ml Zynrelef was applied in the Annalisa wound. At this point, the abdomen was deflated, all ports were removed under direct vision, and no bleeding was noted from any of the port sites. The skin incisions were irrigated with saline and were closed with 4-0 absorbable monofilament sutures. Steri-Strips and OpSites were used to cover all incisions. The patient was extubated and was transferred in stable condition to the recovery room for further care. I was present and performed all dykes parts of the procedure. Mr. Bolaños was the first officer and flight instructor. There were no residents to assist with this case. Chandan Jolly MD, PhD, FACS Surgeon: Cornelius Jolly MD Anesthesia: GETA, local and other (TAP block and 6ml Zynrelef) Was an Supervisor Pumping Station used for this Procedure?: No Supervisor Pumping Station: Rocky Bolaños Estimated blood loss (mL): 10 IV fluids (mL): 1,700 Urine output (mL): 0 (No Mederos to record output) Pathology: other (Stomach) Condition: stable Disposition: PACU
--- NOTE | 2023-10-11 10:25 | P.PNGS_ITS ---
Subjective Subjective Date of Service: 10/12/23 Interval history: Feels well. Mild incisional pain. She is tolerating phase 1 bariatric diet Physical Exam 2 Vital Signs: Vital Signs: Last Vital Signs Temp 98.4 F 10/11/23 07:39 Pulse 84 10/11/23 07:39 Resp 18 10/11/23 07:39 BP 148/87 H 10/11/23 07:39 Pulse Ox 97 10/11/23 07:39 O2 Del Method Room Air 10/11/23 07:39 BMI result Body Mass Index 37.8 GI: Inspection: Yes normal to inspection, Yes incision (clean, dry and intact) and Yes obesity Palpation (GI): Soft to palpation Extrem: Right lower extremity: normal to inspection (no calf tenderness) L eft lower extremity: normal to inspection (no calf tenderness) Objective Data Active Medications Lactated Ringer's (Lr) 1,000 mls @ 100 mls/hr IVCONT .Q10H MARIELA Last Admin: 10/11/23 07:58 Dose: 100 mls/hr Documented By: FELICITY Labs 10/12/23 05:02 10/12/23 05:02 Labs: Laboratory Results - last 24 hr 10/11/23 10/11/23 07:40 08:34 Urine Test NEGATIVE Blood Type O Positive Antibody Screen NEGATIVE Procedures Date of Service Date of Service: 10/12/23 Progress Note: A&P Assessment and plan (1) Obesity: Status: Acute Assessment and Plan: s/p laparoscopic sleeve gastrectomy and gastropexy Doing well Will check am labs and if OK the patient will be discharged home (2) BMI 37.0-37.9, adult: Status: Acute (3) Anemia: Status: Acute (4) GERD (gastroesophageal reflux disease): Status: Acute (5) S/P laparoscopic sleeve gastrectomy: Status: Acute Time Spent With Patient Time: Total time managing care of this patient today ____ minutes. Quality Stroke Does the patient have a stroke diagnosis?: No VTE Prior VTE?: No VTE Risk Level:: Surgical - moderate VTE Device Contraindication: N/A - Device Ordered VTE Drug Contraindication: Treatment Not Indicated
--- NOTE | 2023-10-11 12:54 | PM.DS ---
DS: Providers Provider Date of Service: 10/12/23 Date of admission: 10/11/23 07:30 Primary care physician: Yoli Sunshine MD DS: Diagnosis Discharge Diagnosis (1) Obesity: Status: Acute (2) BMI 37.0-37.9, adult: Status: Acute (3) Anemia: Status: Acute (4) GERD (gastroesophageal reflux disease): Status: Acute DS: Summary Hospital Course Hospital Course: ADMITTING DIAGNOSIS: obesity, anemia ? DISCHARGE DIAGNOSIS: same, s/p laparoscopic sleeve gastrectomy ? PAST SURGICAL HISTORY: laparoscopic cholecystectomy ? PROCEDURE: upper endoscopy, laparoscopic sleeve gastrectomy ? DISCHARGE SUMMARY: ? History of Present Illness: ? The patient is a?38 year-old woman with a BMI of?42 kg/m2 and associated co-morbidities as described above. The patient had extensive work-up,lost?22.9 lbs preoperatively and was electively scheduled for laparoscopic, possible open sleeve gastrectomy and gastropexy. Risks and complications of the surgery were discussed with the patient in advance, particularly the possibility of , pulmonary embolism, anastomotic leak, bleeding, bowel injury, GERD, cardiac, renal or pulmonary complications. The patient understood all the risks and was in agreement with the surgical plan. ? Hospital Course: ? The patient underwent an uneventful laparoscopic sleeve gastrectomy with gastropexy on the day of admission. Postoperatively, the patient was transferred to the surgical floor. The patient received IV Acetaminophen and IV dilaudid for pain control. Patient was started on bariatric phase 1 diet POD #0. On postoperative day one, the patient was feeling well without nausea, vomiting, fevers, or tachycardia. The patient had some mild incisional pain and the abdomen was soft. ? On the morning of postoperative day one, the patient was continued on 1 ounce of water or ice every half hour. During the day, the patient did fairly well, having some incisional pain, but able to ambulate adequately and to tolerate liquids well. ? Since the patient is doing well, we decided that the patient was ready to be discharged. The patient was given instructions to follow-up with me next week and to call my office for any fever over 101, persistent abdominal pain, nausea, vomiting, GERD, symptoms of DVT such as calf tenderness, or leg swelling, or pulmonary embolism such as chest pain or shortness of breath. The patient was also instructed to drink 40-60 ounces of liquids per day using the 1-ounce cups. The patient had been given prescriptions for Tylenol for pain, Zofran prn for nausea, and pantoprazole and carafate previously. The patient was encouraged to ambulate and use the incentive spirometer. The patient was allowed to shower, but no baths, and encouraged to stay active at home. All of these instructions were given to the patient personally. All questions were answered and the patient understood all instructions, the instructions were also given to the patient in print. Time Attestation Total time managing care of this patient today: 25 mintues. Discharge Coordination Time (in mins): 25 Quality: Safe Use of Opioids Does Pt have an Active Cancer Diagnosis on the Problem List?: No Quality: Stroke Does the patient have a stroke diagnosis?: No Physical Exam Vital Signs: Vital Signs: Last Vital Signs Temp 98.4 F 10/11/23 07:39 Pulse 84 10/11/23 07:39 Resp 18 10/11/23 07:39 BP 148/87 H 10/11/23 07:39 Pulse Ox 97 10/11/23 07:39 O2 Del Method Room Air 10/11/23 07:39 BMI result Body Mass Index 37.8 DS: Data Data Completed and Pending Pending studies at discharge: Pending at discharge 10/11/23 12:18 Surgical [PTH] Routine Labs on day of discharge: Laboratory Results - last 24 hr 10/11/23 10/11/23 07:40 08:34 Urine Test NEGATIVE Blood Type O Positive Antibody Screen NEGATIVE Discharge Plan Discharge Anticipated Discharge Date/Time: 10/12/23 10:00 Patient Disposition: Home, Self-Care Discharge Diagnosis: s/p laparoscopic sleeve gastrectomy Referrals: Yoli Sunshine MD [Primary Care Provider] - 1 Week Discharge Medications: Continued pantoprazole 40 mg tablet,delayed release (DR/EC) 40 mg PO DAILY Qty: 90 0RF sucralfate 100 mg/mL suspension 10 ml PO BID Qty: 600 0RF Patient Comments: postop med ondansetron 4 mg tablet,disintegrating 4 mg PO Q12H Qty: 20 0RF Patient Comments: postop med Rx Instructions: Only take one every 12 hours as needed if you have nausea Discontinued cholecalciferol (vitamin D3) 125 mcg (5,000 unit) capsule 125 mcg PO DAILY Qty: 90 0RF Rx Instructions: 90 day supply vitamin A palmitate 3,000 mcg (10,000 unit) capsule 10,000 unit PO DAILY Qty: 60 0RF thiamine HCl (vitamin B1) 100 mg tablet 100 mg PO DAILY Qty: 90 0RF Vitron-C 65 mg iron- 125 mg tablet,delayed release (DR/EC) 1 tab PO BEDTIME Rx Instructions: swallow whole; do not chew/break/dissolve/open 90-day supply docusate sodium [Colace] 100 mg capsule 100 mg PO DAILY Qty: 90 0RF Discharge Orders: Discharge Order (Routine); Ordered 10/12/23 Ordered By: Rocky Bolaños Activity on Discharge: No heavy lifting Stand Alone Forms: Patient Portal Discharge page Print Language: [place] Care Plan Goals: weight loss Health Concerns: obesity Plan of Treatment: No tub baths, sex or returning to work until discussed at first post op appointment. No exercise, alcohol, tobacco or illegal drug use. Continue to use incentive spirometer hourly while awake. Walk in home for 5- 10 minutes every 2 hours during the first week. Follow all instructions in the bariatric handbook and call with any questions.Discharge Instructions 1. Please call your doctor or come back to the emergency room should any new symptoms arise. 2. You will receive a courtesy call from [facility] 24-48 hours after discharge. 3. Activity: abstain from alcohol, practice limited stair climbing, no bending, no driving, no exercise, no illicit substances, no lifting, no sex, no tub bath, no work. 4. Diet: continue as discussed with Dr. Jolly. 5. Dressing Change/Wound Care: Your incision is covered by clear bandages and guaze underneath. If the area is tender, you may apply an ice pack for short intervals (no more than 20 minutes on, followed by at least 20 minutes off). Do not apply heat. Do not use creams, lotions, or topical antibiotics unless instructed to do so by your surgeon. These can cause infection or allergic reaction. 6. Call your doctor if: - Your temperature exceeds 101.5 F - You experience excessive pain or swelling - You have an unexpected reaction to medication - You have excessive bleeding - You experience continued vomiting/nausea - Your incision begins to separate - Your incision shows signs of infection such as increased redness, swelling, excessive pain, heat, or drainage (light blood or clear fluid is normal) 7. General instructions: No lifting greater than 5 lbs for 1 week and not more than 20lbs the next 3?weeks. No driving until seen at the office in 5-7 days after surgery. If you do not move your bowels in the next 2 days, please tell?Dr. Jolly. Please walk around your home every hour or two to prevent blood clots from forming in your legs. You do not need to wake from sleeping to walk. Please sleep in a bed or couch to prevent kinking at the hips and knees. Please take your incentive spirometer (your lung ammunition components inspector) home with you and use it for the next few days to prevent pneumonia. You may shower, no hot tubs, baths or swimming pools.?Please follow the post op diet instructions you are?given by Dr Jolly? and text me daily at 5-6pm for an update.?If you have any issues or concerns or questions please communicate this to him via text.? The Celebrate shakes have all of the bariatric vitamins you need if you consume these shakes. If you are drinking other protein shakes, you will need to purchase the Celebrate multivitamins and calcium that are available in the hospital gift shop on the first floor of the main hospital.??Do not take anything without first discussing with Dr Jolly. Please make sure you are consuming at least 40 ounces of fluids per day starting the?day AFTER your discharge from the hospital. Always drink 1-2 ml per minute using the 5ml?syringe. If you drink faster you may experience?bloating,?gas pain, burping, nausea or heartburn. In that case please slow down your pace and use the syringe to?understand better the?proper?pace and volume of drinking. Do not hesitate to contact the office with any questions at . The patient's medical history has been reviewed and they are considered low risk for post op DVT and therefore DVT prophylaxis is not considered necessary. Travel after surgery was reviewed. The patient has not disclosed any travel plans during the first 30 days after surgery and they have been advised that within the first 30 days after surgery any bus, plane, train or car travel over 2 hours in duration is contraindicated due to the possibility of developing blood clots from immobility. Any travel, needs to include periods of ambulation of 10 minutes in duration every 2 hours.? The patient was instructed to discuss any plans for travel during this period with their bariatric surgeon. Assessment: stable s/p laparoscopic sleeve gastrectomy
[2023-10-11 13:24] LABS: Hematocrit 32.8 % (37.0-47.0); Hemoglobin 11.3 g/dl (12.0-16.0)
[2023-10-11 13:43] LABS: Anion Gap 11 (12-20); Blood Urea Nitrogen 6 mg/dL (9-16); Calcium 8.9 mg/dL (8.4-10.2); Carbon Dioxide 26 mmol/L (22-29); Chloride 107 mmol/L (96-108); Estimated Glomerular Filt Rate > 60; Glucose Random 134 mg/dL (60-115); Potassium 3.6 mmol/L (3.3-5.1); Sodium 140 mmol/L (135-145)
[2023-10-11] MEDS: Acetaminophen 1,000 MG/100 ML PIGGYBACK 16.7 MG IV ×2 (14:23→21:02)
--- NOTE | 2023-10-11 14:33 | PC.NURSE ---
Pt refusing to participate in admission assessment.
[2023-10-11] MEDS: ondansetron HCL 4 MG/2 ML VIAL IVPUSH (15:08)
--- NOTE | 2023-10-11 15:17 | PC.NURSE ---
Pt more awake, no resp distress, ambulated to bathroom and voided. back to bed, c/o nausea, medicated prn.
[2023-10-11] MEDS: ceFAZolin Sodium/Dextrose,Iso 2 GM/50 ML PIGGYBACK IV (16:22)
--- NOTE | 2023-10-11 17:57 | PC.NURSE ---
Pt wishes to pause IVF to ambulate
[2023-10-11] MEDS: Famotidine/PF 20 MG/2 ML VIAL IVPUSH (21:02)
[2023-10-12] MEDS: Lactated Ringers 1,000 ML 100 ML IVCONT (02:02)
[2023-10-12] MEDS: Acetaminophen 1,000 MG/100 ML PIGGYBACK 16.7 MG IV (03:12)
[2023-10-12 03:25] VITALS: BP 140/86; PULSE 77; RESP 18; TEMP 36.8; O2SAT 96
[2023-10-12 06:06] LABS: MANUAL DIFF FLAG NO
[2023-10-12 06:29] LABS: Anion Gap 14 (12-20); Blood Urea Nitrogen 6 mg/dL (9-16); Calcium 9.2 mg/dL (8.4-10.2); Carbon Dioxide 24 mmol/L (22-29); Chloride 106 mmol/L (96-108); Estimated Glomerular Filt Rate > 60; Glucose Random 100 mg/dL (60-115); Potassium 4.1 mmol/L (3.3-5.1); Sodium 140 mmol/L (135-145)
[2023-10-12 07:10] VITALS: BP 141/83; PULSE 86; RESP 20; TEMP 36.3; O2SAT 99
[2023-10-12] MEDS: 0.9 % Sodium Chloride Flush 3 ML SYRINGE IVFLUSH (07:16)
[2023-10-12] MEDS: Famotidine/PF 20 MG/2 ML VIAL IVPUSH (07:16)
[2023-10-12 07:28] LABS: Basophils Percent Auto 0.1 % (0-2); Hematocrit 32.5 % (37.0-47.0); Hemoglobin 11.2 g/dl (12.0-16.0); Imm Gran Abs Auto 0.04 X10*3/uL (0.00-0.03); Imm Gran Pct Auto 0.5 % (0.0-0.4); Lymphocytes Absolute Auto 1.3 X10*3/uL (1.2-4.9); Lymphocytes Percent Auto 17.4 % (20-40); Mean Corpuscular HGB Conc 34.5 g/dl (31.0-35.0); Mean Corpuscular Hemoglobin 28.3 pg (27.0-33.0); Mean Corpuscular Volume 82.1 fL (80.0-98.0); Mean Platelet Volume 10.3 fL (9.4-12.3); Monocytes Absolute Auto 0.3 X10*3/uL (0.1-1.2); Monocytes Percent Auto 4.5 % (2-11); Neutrophils Absolute Auto 5.7 x10*3/uL (2.0-8.3); Neutrophils Percent Auto 77.5 % (45-73); Platelet Count 221 X10*3/uL (160-400); Red Blood Count 3.96 X10*6/uL (4.20-5.50); Red Cell Distribution Width 13.2 % (11.0-16.0); White Blood Count 7.4 X10*3/uL (4.8-10.8)
--- NOTE | 2023-10-12 09:24 | MHC.CM.PN ---
CM MET WITH PT AT BEDSIDE. PT LIVES WITH FAMILY. INDEPENDENT AT BASELINE. +HCP PCP MITZI LANTIGUA DP: PT HAS BEEN MEDICALLY CLEARED FOR DC HOME, NO SERVICES. FAMILY WILL TRANSPORT
--- NOTE | 2023-10-12 12:18 | HO.POSTANES ---
Post Anesthesia Evaluation Post Anesthesia Evaluation Date of Service: 10/12/23 Vital Signs: Vital Signs Temp Pulse Resp BP Pulse Ox O2 Del Method 10/12/23 07:10 97.3 F 86 20 141/83 H 99 Room Air 10/12/23 03:25 98.2 F 77 18 140/86 H 96 Room Air Comments: Pt. Discharged home, Called, no answer. Nurse reported pt had no anesthetic complaints.
== END 2023-10-12 10:10 | disposition home or self-care (01) | DRG 403 ==
LOC: HO.SSSA 12:56 → HO.S3 13:37
PROVIDERS: Anesthesiology; Physician Assistant Surgical; Admitting Provider Surgery; PCP Internal Medicine; Visit Provider Surgery
PROC: 0DB64Z3 Excision of Stomach, Percutaneous Endoscopic Approach, Vertical (ICD-10-PCS; CPT 43845; principal; 2023-10-11 10:30)
DX: E66.01 Morbid (severe) obesity due to excess calories (principal); D57.3 Sickle-cell trait; G47.33 Obstructive sleep apnea (adult) (pediatric); Z68.37 Body mass index [BMI] 37.0-37.9, adult; D64.9 Anemia, unspecified; K21.9 Gastro-esophageal reflux disease without esophagitis; Z79.899 Other long term (current) drug therapy
CPT/HCPCS: 36415; 80048; 80053; 80061; 81025; 83036; 83525; 84443; 85014; 85018; 85025; 85610; 85730; 86140; 86850; 86900; 86901; 88304; 88305; 88307; 88342; A4649; C9088; C9145; J0131; J0690; J1100; J2250; J2371; J2405; J2704; J2795; J3010; J7120

== ENCOUNTER → 2023-10-11 07:30 | Outpatient (BNV) | payer OTHER, SELFPAY | PROVIDERS: Admitting Provider Surgery; PCP Internal Medicine; Visit Provider Surgery | DX: E66.9 Obesity, unspecified (principal); Z68.37 Body mass index [BMI] 37.0-37.9, adult | CPT/HCPCS: 43659; 43775; 99024; 99499 ==

== ENCOUNTER 2023-10-16 10:30 | Outpatient (AMB) | payer OTHER, SELFPAY ==
[2023-10-16 11:05] VITALS: BP 137/75; PULSE 78; TEMP 36.7; O2SAT 78; BMI 37.3
--- NOTE | 2023-10-16 11:05 | MHC.OFFVISWM ---
VS Expanded 10/16/23 11:05 BP 137/75 Blood Pressure Location Rt brachial Blood Pressure Position Sitting Pulse 78 Pulse Source Pulse Oximeter Temp 98.1 F Temperature Source Temporal Artery Scan Pulse Oximetry 78 L Oxygen Delivery Method Room Air Height 5 ft 4 in Weight 217 lb 3.2 oz BMI 37.3 Body Fat % 46.0 Body Fat Mass 99.8 Fat Free Mass 117.2 Visceral Fat Rating 11.0 Body Water % 38.7 Body Water Mass 84.0 Muscle Mass/Score 111.4 Basal Metabolic Rate/Score 1,671 Intake Visit Reasons: (OV) PO LSG 10/11/23 Allergies No Known Allergies Allergy (Verified 10/16/23 11:06) HPI Comments Details: Very pleasant 38-year-old female returns to the office today in follow-up. She is 5 days status post sleeve gastrectomy performed on 10/11/2023. She is tolerating 3 celebrate 4 in 1 shakes with 1 scoop each and approximately 50 oz of fluid daily. She is moved her bowels and has no significant complaints at today's visit [facility] Medical History Back pain Prediabetes Sickle cell trait Hiatal hernia Incontinence in female Overactive bladder Sleep apnea Cholelithiasis Morbid obesity Surgical History Hx laparoscopic cholecystectomy Hx of esophagogastroduodenoscopy Social History Household Members: Unknown / Unable to assess Are you a primary companion caregiver to a significant other at home: No Do you presently have visiting nurse or other home services: No Comment: assistance as needed Patient Tobacco Use Status: Never used Tobacco service: No Physical Exam Vital Signs: Last Vital Signs Temp 98.1 F 10/16/23 11:05 Pulse 78 10/16/23 11:05 BP 137/75 10/16/23 11:05 Pulse Ox 78 L 10/16/23 11:05 Oxygen Delivery Method Room Air 10/16/23 11:05 BMI result Body Mass Index 37.3 GI Inspection: Yes incision (Clean, dry, intact.) Assessment & Plan Assessment & Plan (1) S/P laparoscopic sleeve gastrectomy: Code(s): Z98.84 - Bariatric surgery status Category: Surgical Plan: POD 5 s/p LSG on 10/11/[address] Jolly Weight loss prior to surgery was 22.9 pounds or 9.3 % TBWL. Original weight on 07/02/2023 was 244.9 pounds and op weight was 222 pounds. Be sure to text Dr Jolly exactly 1 week after surgery your weight from your home scale so he can adjust your meal plan. Continue meal plan until f/u w Yudelka in 2 weeks May shower, no submersion in bath for another week Continue abdominal binder with activity and exercise for the next 2 weeks. Exercise prior to surgery was treadmill, may resume No abdominal exercises for 6 weeks post operatively Will be emailed link to post op video for review Reminded of the pace of drinking, 2 mL per minute, 1 oz/15 min.
== END 2023-10-16 11:14 | disposition home or self-care (01) ==
PROVIDERS: PCP Internal Medicine; Visit Provider Physician Assistant Surgical
DX: Z98.84 Bariatric surgery status (principal)
CPT/HCPCS: 99024

== ENCOUNTER → 2023-10-16 10:30 | Outpatient (BNVA) | payer OTHER, SELFPAY | PROVIDERS: PCP Internal Medicine; Visit Provider Physician Assistant Surgical | DX: E66.9 Obesity, unspecified (principal); Z68.37 Body mass index [BMI] 37.0-37.9, adult; Z90.3 Acquired absence of stomach [part of] | CPT/HCPCS: 99212 ==

== ENCOUNTER 2023-10-30 11:56 | Outpatient (AMB) | payer OTHER, SELFPAY ==
--- NOTE | 2023-10-30 12:00 | MHC.OFFVISWM ---
VS Expanded 10/30/23 12:13 BP 112/67 Blood Pressure Location Rt brachial Blood Pressure Position Sitting Pulse 80 Temp 97.8 F Temperature Source Tympanic Pulse Oximetry 100 Oxygen Delivery Method Room Air Height 5 ft 4 in Weight 212 lb BMI 36.4 Body Fat % 44.3 Body Fat Mass 94.0 Fat Free Mass 118.0 Visceral Fat Rating 10.0 Body Water % 39.9 Body Water Mass 84.4 Muscle Mass/Score 112.0 Basal Metabolic Rate/Score 1,670 Intake Visit Reasons: (OV) PO LSG 10/11/23 Allergies No Known Allergies Allergy (Verified 10/16/23 11:06) Medication List - Last Reconciled 10/30/23 by EDMUNDO Newman docusate sodium (Colace) 100 mg PO DAILY pantoprazole 40 mg PO DAILY sucralfate 10 mL PO BID HPI Comments Details: This?is a?38?yo female who is s/p LSG 10/11/2023. Presents for 3 week post op visit. Weight loss of 5.2lbs since last OV 2 weeks ago.? No complaints of nausea, emesis, abdominal pain or reflux. Using colace and metamucil for constipation which helps. Present meal plan includes: 8-10am 2 scoops Celebrate 4:1 in 8oz UAM 11am-1pm 1 scoop 2-4pm 1 scoop 5-8pm Zone bar getting adequate hydration Exercise routine includes: has not been exercising much, knows goal is 300 hamilton per day/2000 per week but feeling tired due to anemia does go for walks but they fatigue her and she is only able to burn about 100 calories daily PFSH Medical History Back pain Prediabetes Sickle cell trait Hiatal hernia Incontinence in female Overactive bladder Sleep apnea Cholelithiasis Morbid obesity Surgical History Hx laparoscopic cholecystectomy Hx of esophagogastroduodenoscopy Social History Household Members: Unknown / Unable to assess Are you a primary manager critical care unit to a significant other at home: No Do you presently have visiting nurse or other home services: No Comment: assistance as needed Patient Tobacco Use Status: Never used Tobacco service: No Physical Exam Vital Signs: Last Vital Signs Pulse 80 10/30/23 12:13 BP 112/67 10/30/23 12:13 Assessment & Plan Assessment & Plan (1) S/P laparoscopic sleeve gastrectomy: Code(s): Z98.84 - Bariatric surgery status Category: Surgical (2) Obesity: Code(s): E66.9 - Obesity, unspecified Category: Medical Qualifiers: Body mass index: BMI 39.0-39.9 Obesity classification: adult class 2 (BMI 35 - 39.9) Obesity type: due to excess calories Serious obesity comorbidity presence: with serious comorbidity Qualified Code(s): E66.01 - Morbid (severe) obesity due to excess calories; Z68.39 - Body mass index [BMI] 39.0-39.9, adult Plan Continue current meal plan for now. Encouraged pt to try to increase exercise to reach goal of 300 hamilton per day. If fatigue persists or worsens consider ordering labs as pt has history of anemia, previously on iron but not getting any iron currently through her PO supplement or through protein shake. Discussed no heavy lifting until 6w postop. Pt to continue to text Dr. Leah monroy. RTC 2 weeks, to see Rocky as I will be away. Patient is obese and is not considered stable at this time. I spent a total of 30 minutes reviewing/updating records, examining the patient and counseling the patient on weight management as detailed above.
[2023-10-30 12:13] VITALS: BP 112/67; PULSE 80; TEMP 36.6; O2SAT 100; BMI 36.4
== END 2023-10-30 12:32 | disposition home or self-care (01) ==
PROVIDERS: PCP Internal Medicine; Visit Provider Physician Assistant Surgical
DX: E66.09 Other obesity due to excess calories (principal); Z68.36 Body mass index [BMI] 36.0-36.9, adult; Z90.3 Acquired absence of stomach [part of]; Z98.84 Bariatric surgery status
CPT/HCPCS: 99024

== ENCOUNTER → 2023-10-30 11:56 | Outpatient (BNVA) | payer OTHER, SELFPAY | PROVIDERS: PCP Internal Medicine; Visit Provider Physician Assistant Surgical | DX: E66.01 Morbid (severe) obesity due to excess calories (principal); Z68.39 Body mass index [BMI] 39.0-39.9, adult; Z98.84 Bariatric surgery status | CPT/HCPCS: 99212 ==

== ENCOUNTER 2023-11-28 11:50 | Outpatient (AMB) | payer OTHER, SELFPAY ==
--- NOTE | 2023-11-28 11:54 | A.OFFVIS_ITS ---
VS Expanded 11/28/23 11:59 BP 128/64 Blood Pressure Location Rt brachial Blood Pressure Position Sitting Pulse 76 Pulse Source Pulse Oximeter Temp 97.1 F Temperature Source Tympanic Pulse Oximetry 98 Oxygen Delivery Method Room Air Height 5 ft 4 in Weight 207 lb 12.8 oz BMI 35.7 Body Fat % 40.2 Body Fat Mass 83.6 Fat Free Mass 124.2 Visceral Fat Rating 9.0 Body Water % 42.8 Body Water Mass 88.8 Muscle Mass/Score 118.0 Basal Metabolic Rate/Score 1,729 Intake Visit Reasons: (OV) PO LSG 10/11/23 Allergies No Known Allergies Allergy (Verified 10/16/23 11:06) Medication List - Last Reconciled 11/28/23 by EDMUNDO Newman docusate sodium (Colace) 100 mg PO DAILY pantoprazole 40 mg PO DAILY sucralfate 10 mL PO BID HPI Comments Details: This?is a?38?yo female who is s/p LSG 10/11/2023. Presents for 6 week post op visit. Weight at last visit on 10/30/2023 was 212 pounds with a BMI of 36.4, weight today is 207.8 pounds, representing a 4.2 pound weight loss with a BMI today of 35.7.? No complaints of nausea, emesis, abdominal pain or reflux. Taking Colace and metamucil but neither are helping. Present meal plan includes: 3 8oz shakes 1 scoop Celebrate 4:1 can have 4 forkfuls protein (fish/chicken) and 4 forks veg (broccoli) Exercise routine includes: 400 calories 5x/week PFSH Medical History Back pain Prediabetes Sickle cell trait Hiatal hernia Incontinence in female Overactive bladder Sleep apnea Cholelithiasis Morbid obesity Surgical History Hx laparoscopic cholecystectomy Hx of esophagogastroduodenoscopy Social History Household Members: Unknown / Unable to assess Are you a primary career center advisor to a significant other at home: No Do you presently have visiting nurse or other home services: No Comment: assistance as needed Patient Tobacco Use Status: Never used Tobacco service: No Assessment & Plan Assessment & Plan (1) S/P laparoscopic sleeve gastrectomy: Code(s): Z98.84 - Bariatric surgery status Category: Surgical (2) Obesity: Code(s): E66.9 - Obesity, unspecified Category: Medical Qualifiers: Obesity type: due to excess calories Obesity classification: adult class 2 (BMI 35 - 39.9) Serious obesity comorbidity presence: with serious comorbidity Body mass index: BMI 39.0-39.9 Qualified Code(s): E66.01 - Morbid (severe) obesity due to excess calories; Z68.39 - Body mass index [BMI] 39.0- 39.9, adult Plan Pt to continue same meal plan per Dr. Medina Mcbride Tanita measurements, good fat loss with increase in muscle mass and water weight. Cleared for all exercise now that she is 6 weeks postop. Try Miralax daily for constipation. RTC 1 month. Gave pt my phone # and encouraged her to text any questions between visits. Patient is obese and is not considered stable at this time. I spent a total of 30 minutes reviewing/updating records, examining the patient and counseling the patient on weight management as detailed above. Medications: New polyethylene glycol 3350 (Miralax) 17 grams PO DAILY 238 grams 3RF
[2023-11-28 11:59] VITALS: BP 128/64; PULSE 76; TEMP 36.2; O2SAT 98; BMI 35.7
== END 2023-11-28 12:22 | disposition home or self-care (01) ==
PROVIDERS: PCP Internal Medicine; Visit Provider Physician Assistant Surgical
DX: E66.01 Morbid (severe) obesity due to excess calories (principal); Z98.84 Bariatric surgery status; Z68.39 Body mass index [BMI] 39.0-39.9, adult
CPT/HCPCS: 99024

== ENCOUNTER → 2023-11-28 11:50 | Outpatient (BNVA) | payer OTHER, SELFPAY | PROVIDERS: PCP Internal Medicine; Visit Provider Physician Assistant Surgical | DX: E66.01 Morbid (severe) obesity due to excess calories (principal); Z68.35 Body mass index [BMI] 35.0-35.9, adult; Z90.3 Acquired absence of stomach [part of] | CPT/HCPCS: 99212 ==